=== PATIENT | female | born 1935 | race Caucasian/White ===

== ENCOUNTER 2019-09-14 19:25 | Inpatient (IN) | payer OTHER, BC ==
[2019-09-14 19:35] VITALS: BMI 31.3
--- NOTE | 2019-09-14 19:38 | PDOC ---
History of Present Illness - General Chief Complaint: Weakness Stated Complaint: RT. ARM NUMBNESS & WEAKNESS Time Seen by Provider: 09/14/19 19:38 History Source: Patient Exam Limitations: No Limitations - History of Present Illness Initial Comments: 09/14/19 19:39 84yF w PMHx HTN HLD hypothyroidism obesity, presenting w sudden onset R shoulder weakness/pain and BLE weakness. Left the house for the 1st time since April (5mo ago) to visit Dr Renay cross. Endorsed sudden onset BLE weakness upon re-entering her house. Denies LOC, head or shoulder trauma. Neighbours help drag pt up stairs on bed sheet to her bedroom w subsequent R shoulder weakness/pain. Last known well 230pm today. Per daughter, pt's speech and affect is baseline. Asad leg swelling is chronic. Pt denies headache, cough, chest/ABD pain, SOB, n/v, urinary/bowel mvmt changes. tPA Exclusion Checklist 0-3hr - Time Elapsed Date last known well: 09/14/19 Time last known well: 14:30 Elaspsed time: Day(s) and 10 Hour(s) and 52 Minutes - Thrombolytic Therapy Candidate Is the patient eligible for Thrombolytic Therapy?: No - Ineligibility reason(s) Reasons No tPA given: Outside of window - delayed arrival NIH Stroke Scale - Last Known Well Date/Time & Onset Date Last Known Well: 09/14/19 Time Last Known Well: 14:30 - Initial Evaluation Level of consciousness: Alert Ask patient the month and their age: Answers both correctly Ask patient to open & close eyes; make fist and let go: Obeys both correctly Best gaze (horizontal eye movement): Normal Visual field testing: No visual field loss Facial paresis (Show teeth/raise eyebrows/close eyes tight): Normal symmetrical movement Motor Function: Left Arm: Drift Motor Function: Right Arm: Some effort against gravity Motor Function: Left Leg: Some effort against gravity Motor Function: Right Leg: Some effort against gravity Limb Ataxia: No ataxia Sensory(Use pinprick test arms,legs,trunk,face/side to side): Normal Best language (Describe picture, name items, read sentences): No Aphasia Dysarthria (read several words): Normal articulation Extinction and Inattention: No abnormality - Total Score NIH Stroke Scale Score: 7 Past History - Medical History Allergies/Adverse Reactions: Allergies Allergy/AdvReac Type Severity Reaction Status Date / Time No Known Drug Allergies Allergy Verified 09/14/19 19:35 Home Medications: Ambulatory Orders Atenolol [Tenormin -] 50 mg PO DAILY #0 tablet 05/10/11 Atorvastatin Ca [Lipitor] 10 mg PO DAILY 06/10/13 Docosahexanoic Acid/Epa [Fish Oil Concentrate Softgel] 1 each PO DAILY 06/10/13 Fenofibrate 160 mg PO DAILY 06/10/13 Levothyroxine [Synthroid -] 100 mcg PO DAILY 06/10/13 Losartan Potassium 50 mg PO DAILY 06/10/13 Multivitamin/Iron/Folic Acid [Centrum Complete Multivit Tab] 1 each PO DAILY 06/10/13 Potassium Chloride 20 meq PO DAILY 06/10/13 Aspirin [ASA -] 325 mg PO DAILY@0800 #0 tablet 06/27/13 Oxycodone HCl/Acetaminophen [Percocet 5-325 mg Tablet] 1 - 2 combo PO Q6H PRN #0 tablet 06/27/13 Sennosides/Docusate Sodium [Pericolace -] 2 each PO HS #0 tablet 06/27/13 Anemia: No Asthma: No Cancer: No Cardiac Disorders: Yes (CARDIAC STENT) CVA: No COPD: No CHF: No Dementia: No Diabetes: No GI Disorders: No Disorders: No HTN: Yes Hypercholesterolemia: Yes Liver Disease: No Seizures: No Thyroid Disease: Yes (HYPOTHYROIDISM) - Surgical History Abdominal Surgery: No Appendectomy: No Cardiac Surgery: No Cholecystectomy: No Lung Surgery: No Neurologic Surgery: No Orthopedic Surgery: No - Psycho-Social/Smoking History Smoking Status: No Smoking History: Never smoked Have you smoked in the past 12 months: No Number of Cigarettes Smoked Daily: 0 - Substance Abuse Hx (Audit-C & DAST Scrn) How often the patient has a drink containing alcohol: Never Score: In Men: 4 or > Positive; In Women: 3 or > Positive: 0 Screen Result (Pos requires Nsg. Audit-10AR): Negative In the last yr the pt used illegal drug/Rx for NonMed reason: No Score: Yes response is considered Positive: 0 Screen Result (Positive result requires Nsg. DAST-10): Negative Review of Systems - Review of Systems Constitutional: No: Chills, Fever HEENTM: No: Eye Pain, Ear Discharge Respiratory: No: Cough, Shortness of Breath Cardiac (ROS): No: Chest Pain, Lightheadedness ABD/GI: No: Constipated, Diarrhea, Nausea, Vomiting : No: Burning, Dysuria Musculoskeletal: No: Back Pain, Joint Pain Integumentary: No: Bruising, Pallor Neurological: No: Headache, Seizure Psychiatric: No: Anxiety, Depression Endocrine: No: Intolerance to Cold, Intolerance to Heat Hematologic/Lymphatic: No: Anemia, Blood Clots *Physical Exam - Vital Signs Last Vital Signs Temp Pulse Resp BP Pulse Ox 98.7 F 62 17 136/82 98 09/14/19 19:31 09/14/19 19:31 09/14/19 19:31 09/14/19 19:31 09/14/19 19:31 - Physical Exam General Appearance: Yes: Nourished, Appropriately Dressed, Obese. No: Mild Distress HEENT: positive: EOMI, RAVINDER, Normal Voice, Hearing Grossly Normal. negative: Scleral Icterus (R), Scleral Icterus (L) Respiratory/Chest: positive: Lungs Clear, Normal Breath Sounds, Other (R posterior scapular bruising, palpable R lateral deformity). negative: Chest Tender, Respiratory Distress, Crackles, Rales, Rhonchi, Stridor, Wheezing Cardiovascular: positive: Regular Rhythm, Regular Rate, S1, S2. negative: Murmur Vascular Pulses: Dorsalis-Pedis (R): 1+, Doralis-Pedis (L): 1+ Comments:: 09/14/19 20:01 2+ radial asad Gastrointestinal/Abdominal: positive: Normal Bowel Sounds, Flat, Soft. negative: Tender, Organomegaly Musculoskeletal: negative: CVA Tenderness (R), CVA Tenderness (L) Extremity: positive: Pedal Edema (2+ pitting asad to knees), Other (R arm : shoulder tenderness, no abrasion, intact thumbs up/finger-5th digit/lumbrical strength, intact sensation to touch, abrasion L knee) Integumentary: positive: Normal Color, Warm Neurologic: positive: blade worker II-XII NML intact, Fully Oriented, Alert, Normal Mood/Affect, Normal Response. negative: Motor Strength 5/5 (4/5 L arm, 3/5 R arm, 3/5 BLE hip flexion, 5/5 dorsi/plantarflexion), Facial Droop, Numbness (all extremities), Sensory Deficit, Confused, Disoriented Procedures - Joint Reduction Right Joint Reduction Site: right: Anterior Dislocation Conscious Sedation: No Anesthetic: 1% Lidocaine Amount (mL): 10 Procedure: Other (external rotation) Post-Procedure NV Exam: normal Post Joint Reduction Film: joint not reduced ED Treatment Course - LABORATORY CBC & Chemistry Diagram: 09/14/19 20:20 09/14/19 20:20 Medical Decision Making - Medical Decision Making 09/14/19 19:57 EKG - sinus tachycardia w 1st deg block, LAD, HR 115, OH 212, QTc 445, no ST changes Head CT - mod atrophy, no acute bleed/lesion/infarct Chest, R arm XR - R medial shoulder dislocation, small glenoid avulsion fx, asad pulm congestion, no infiltrates/consolidation WBC 12 w L shift --- 84yF w PMHx HTN HLD hypothyroidism obesity presenting w sudden onset R shoulder weakness/pain and BLE weakness this afternoon, last known well 230pm today 1. Extremity weakness likely 2/2 deconditioning, new onset CHF exacerbation (leg swelling, BNP 630). Elevated trop 0.06 likely 2/2 demand. 2. close R medial arm dislocation. Neurovascular intact distal. Posterior bruising suggest RTC tear Low concern for CVA (only focal deficit R arm more weak than L, NIHSS 7 - extremity weakness, tPA not given d/t pt arrival over 3hrs from last well known, CT neg) vs ACS (no ST changes, no chest pain/SOB) vs PNA (no consolidation) vs UTI (no dysuria) vs hypothyroid (TSH <5) Given tylenol, 6 morphine, 20 lido in R shoulder joint Consented to reduction. Unable to permanently reduce R shoulder w external rotation, multiple times shoulder pops in/out of joint. Neurovascular intact distal. Placed in sling Consulted Dr Tennille rouse after multiple reduction attempts - advised place in sling, will evaluate inpatient Admitted tele hospitalist for pre-syncope, BLE weakness, R shoulder dislocation, RTC tear, CHF exacerbation - pending 2nd trop, UA Discharge - Discharge Information Problems reviewed: Yes Clinical Impression/Diagnosis: Pre-syncope, Leg weakness, bilateral Shoulder dislocation Qualifiers: Encounter type: initial encounter Laterality: right Qualified Code(s): S43.004A - Unspecified dislocation of right shoulder joint, initial encounter CHF exacerbation Qualifiers: Heart failure type: unspecified Qualified Code(s): I50.9 - Heart failure, unspecified Rotator cuff tear Qualifiers: Rotator cuff tear extent: unspecified tear extent Rotator cuff tear trauma status: traumatic Encounter type: initial encounter Laterality: right Qualified Code(s): S46.011A - Strain of muscle(s) and tendon(s) of the rotator cuff of right shoulder, initial encounter Condition: Stable - Follow up/Referral Referrals: Clark Cheema MD [Primary Care Provider] - - Patient Discharge Instructions - Post Discharge Activity
--- NOTE | 2019-09-14 19:53 | PDOC ---
Documentation entered by Ray Brand SCRIBE, acting as scribe for Mary Anne Tejeda MD. Mary Anne Tejeda MD: This documentation has been prepared by the scribe, Ray Quintana SCRIBE, under my direction and personally reviewed by me in its entirety. I confirm that the documentation accurately reflects all work, treatment, procedures, and medical decision making performed by me. Attending Attestation - Resident Resident Name: Mlyes Pereyra - ED Attending Attestation I have performed the following: I have examined & evaluated the patient, The case was reviewed & discussed with the resident, I agree w/resident's findings & plan, Exceptions are as noted - HPI HPI: 09/14/19 20:03 The patient is an 84 year old female with a significant PMH of hyperthyroidism, HTN, HLD, who presents to the ED, BIBA, with right sided shoulder and right upper extremity pain. The patient endorses an inability to raise her right arm s/p being pulled into her home by neighbors at 2:30 this afternoon. The patient reports she has not been outside of her home since April until today when she was going to a dermatology appointment. The patient reports she had no difficulty ambulating or walking downstairs prior to appointment with her walker. Upon return from appointment, patient endorses being unable to lift her legs high enough to climb the stairs into her home. The patient reports this was when her neighbors laid her down and pulled her up the stairs into her home. Per daughter (nurse at [facility]), patient is at baseline mental status. The patient denies fall or neck pain. The patient denies chest pain and shortness of breath. Denies fever, chills and/or any GI symptoms. Denies any symptoms. Denies any other symptoms. Allergies: NKDA Social Hx:None reported PCP: Dr. Rafa Cheema (appointment 10/11) - Physicial Exam PE: 09/14/19 20:03 GENERAL: Well-appearing, well-nourished. No apparent distress. HEENT: Normocephalic, atraumatic. PERRL, EOM intact. CARDIOVASCULAR: [id number] PULMONARY: cta b/l ABDOMEN: Protuberant, Soft, non-distended, non-tender. EXTREMITIES: LE chronic 3+ pitting edema, deformity of right shoulder, good ulnar and radial pulses SKIN: there is a large area of ecchymosis to right scapula Warm, dry. No rash NEUROLOGICAL: alert and conversant 09/14/19 21:05 09/14/19 23:23 09/15/19 01:11 - Medical Decision Making 09/15/19 01:45 pt sustained a right shoulder dislocation around 2:30 pm after being pulled on a blanket to bring her into her house, She was too weak to walk at that time ct scan head no acute intracranial pathology , there is moderate atrophy labs reviewed: no anemia, both troponins 0.06 , bnp>600 09/15/19 01:51 pt has dislocated rt shoulder/ multiple attempts were made at shoulder reduction but were unsuccessful , the arm would reduce then come out again, sensation is intact,good pulses Discharge - Discharge Information Problems reviewed: Yes Clinical Impression/Diagnosis: Pre-syncope, Leg weakness, bilateral Shoulder dislocation Qualifiers: Encounter type: initial encounter Laterality: right Qualified Code(s): S43.004A - Unspecified dislocation of right shoulder joint, initial encounter CHF exacerbation Qualifiers: Heart failure type: unspecified Qualified Code(s): I50.9 - Heart failure, unspecified Rotator cuff tear Qualifiers: Rotator cuff tear extent: unspecified tear extent Rotator cuff tear trauma status: traumatic Encounter type: initial encounter Laterality: right Qualified Code(s): S46.011A - Strain of muscle(s) and tendon(s) of the rotator cuff of right shoulder, initial encounter Condition: Stable - Follow up/Referral - Patient Discharge Instructions - Post Discharge Activity
[2019-09-14] MEDS ORDERED: ACETAMINOPHEN 500 MG TABLET (FP) PO ONE (20:08)
[2019-09-14] MEDS ORDERED: ACETAMINOPHEN 325 MG TABLET (FP) ONE (20:20)
[2019-09-14 20:35] LABS: BASO % 0.4 % (0-2.0); EOS % 0.3 % (0-4.5); HEMATOCRIT 39.7 % (32.4-45.2); HEMOGLOBIN 12.8 GM/dL (10.7-15.3); LYMPH % 4.8 % (8-40); MCH 29.1 pg (25.7-33.7); MCHC 32.3 g/dl (32.0-36.0); MEAN PLT VOLUME 7.7 fl (7.5-11.1); MONO % 10.9 % (3.8-10.2); NEUT % 83.6 % (42.8-82.8); PLATELET COUNT 256 K/MM3 (134-434); RBC 4.41 M/mm3 (3.60-5.2); RDW 15.2 % (11.6-15.6); WHITE BLOOD COUNT 12.6 K/mm3 (4.0-10.0)
[2019-09-14 20:45] LABS: INR 1.01 (0.83-1.09); PROTHROMBIN TIME (PATIENT) 11.9 SEC (9.7-13.0)
[2019-09-14 21:19] LABS: ALBUMIN 3.3 g/dl (3.4-5.0); BILIRUBIN,TOTAL 0.7 mg/dL (0.2-1); BLOOD UREA NITROGEN 24.6 mg/dL (7-18); CALCIUM 8.9 mg/dL (8.5-10.1); CREATININE 0.9 mg/dL (0.55-1.3); POTASSIUM 3.8 mmol/L (3.5-5.1); TOT PROT 6.2 g/dl (6.4-8.2)
[2019-09-14] MEDS ORDERED: morphine CARPU-JECT 4 MG/1 ML DISP.SYRIN IVPUSH ONE ×2 (21:49→23:10)
[2019-09-14] MEDS ORDERED: LIDOCAINE HCL 1%, 10 MG/ML (50 mL VIAL) INF ONE (21:52)
[2019-09-14] MEDS ORDERED: LIDOCAINE HCL 1%, 10 MG/ML (20ML VIAL) ONE ×2 (22:02→23:56)
[2019-09-14] MEDS ORDERED: morphine SULFATE 4 MG/ML VIAL ONE (22:04)
[2019-09-14] MEDS ORDERED: MORPHINE SULFATE 2 MG/ML VIAL ONE (22:56)
--- NOTE | 2019-09-15 03:08 | PN ---
Teaching Attending Note Name of Resident: Mavis Gupta ATTENDING PHYSICIAN STATEMENT I saw and evaluated the patient. I reviewed the resident's note and discussed the case with the resident. I agree with the resident's findings and plan as documented. SUBJECTIVE: This is an 84 year old woman with a history of HTN, hyperlipidemia, hypothyroidism who comes to the ED complaining of right shoulder pain. The patient reports that upon returning home from an appointment, she had weakness in both legs. She had to be assisted up her stairs and into her bed by several people using a bed sheet to drag her. Once in bed, she developed severe right shoulder pain. OBJECTIVE: Vital Signs Period Temp Pulse Resp BP Sys/Mazariegos Pulse Ox Last 24 Hr 97.4 F-98.8 F 62-106 17-22 114-136/62-92 97-100 HEART: S1S2, tachycardic LUNGS: Clear ABDOMEN: Soft, non-tender, non-distended, normal BS EXTREMITIES: 2+ edema Laboratory Tests 09/14/19 09/14/19 09/14/19 20:20 20:20 20:20 WBC 12.6 H RBC 4.41 Hgb 12.8 Hct 39.7 D MCV 90.0 MCH 29.1 MCHC 32.3 RDW 15.2 Plt Count 256 MPV 7.7 Absolute Neuts (auto) 10.5 H Neutrophils % 83.6 H D Lymphocytes % 4.8 L D Monocytes % 10.9 H Eosinophils % 0.3 D Basophils % 0.4 Nucleated RBC % 0 PT with INR 11.90 INR 1.01 Sodium 146 H Potassium 3.8 Chloride 110 H Carbon Dioxide 27 Anion Gap 8 BUN 24.6 H Creatinine 0.9 Est GFR (CKD-EPI)AfAm 67.10 Est GFR (CKD-EPI)NonAf 57.90 Random Glucose 150 H Calcium 8.9 Total Bilirubin 0.7 AST 28 ALT 24 Alkaline Phosphatase 57 Creatine Kinase 533 H Creatine Kinase Index 1.9 CK-MB (CK-2) 10.2 H Troponin I 0.06 H B-Natriuretic Peptide Total Protein 6.2 L Albumin 3.3 L TSH 4.42 H Free T4 0.88 09/14/19 09/15/19 20:20 00:52 WBC RBC Hgb Hct MCV MCH MCHC RDW Plt Count MPV Absolute Neuts (auto) Neutrophils % Lymphocytes % Monocytes % Eosinophils % Basophils % Nucleated RBC % PT with INR INR Sodium Potassium Chloride Carbon Dioxide Anion Gap BUN Creatinine Est GFR (CKD-EPI)AfAm Est GFR (CKD-EPI)NonAf Random Glucose Calcium Total Bilirubin AST ALT Alkaline Phosphatase Creatine Kinase Creatine Kinase Index CK-MB (CK-2) Troponin I 0.06 H B-Natriuretic Peptide 634.5 H Total Protein Albumin TSH Free T4 Home Medications Medication Instructions Recorded Atenolol [Tenormin -] 50 mg PO DAILY #0 tablet 05/10/11 Atorvastatin Ca [Lipitor] 10 mg PO DAILY 06/10/13 Docosahexanoic Acid/Epa [Fish Oil 1 each PO DAILY 06/10/13 Concentrate Softgel] Fenofibrate 160 mg PO DAILY 06/10/13 Levothyroxine [Synthroid -] 100 mcg PO DAILY 06/10/13 Losartan Potassium 50 mg PO DAILY 06/10/13 Multivitamin/Iron/Folic Acid 1 each PO DAILY 06/10/13 [Centrum Complete Multivit Tab] Potassium Chloride 20 meq PO DAILY 06/10/13 Aspirin [ASA -] 325 mg PO DAILY@0800 #0 tablet 06/27/13 Oxycodone HCl/Acetaminophen 1 - 2 combo PO Q6H PRN #0 tablet 06/27/13 [Percocet 5-325 mg Tablet] Sennosides/Docusate Sodium 2 each PO HS #0 tablet 06/27/13 [Pericolace -] ASSESSMENT AND PLAN: This is an 84 year old woman with a history of HTN, hyperlipidemia, hypothyroidism who presented to the ED with right shoulder pain after being assisted up stairs because of leg weakness. 1. Anterior dislocation of right shoulder - RUE sling - Pain control - Ortho consult 2. Elevated CK - Possible rhabdomyolysis, myositis - Hold Lipitor - Check ESR, C-RP - Will hold off on giving IV fluid and encourage oral fluid intake - Repeat CK in AM 3. Leg edema, cardiomegaly and increased interstitial markings on AP CXR - Leg edema is chronic - No evidence of acute heart failure - Echocardiogram - Venous dopplers - Chest CT 4. Hypothyroidism - Increase Synthroid as TSH is high and FT4 is low normal
--- NOTE | 2019-09-15 03:18 | HP ---
CHIEF COMPLAINT: My shoulder hurts PCP: Dr. Ortiz HISTORY OF PRESENT ILLNESS: Juliann Protillo is a 84 Y F with a PMH of HLD, HTN, Hypothyroidism and Obesity presented to the ED with 1 day of Right shoulder Pain. She reports that after 5 months of not leaving her home, today she went to a lead process engineer office for an evaluation of a suspicious lesion found on her right shoulder, by her daughter. Upon returning home, she was not able to lift her legs to climb the stairs inside her house, even with assistance from her daughter and neighbor, She felt that her legs were weak and had to sit down on the floor. She was not able to climb the stairs so she was dragged into her upstairs bedroom on a bedsheet cover by her daughter and the next door neighbor. After a while she was laying in her bed, when She began to experience a sudden onset of sever, sharp pain and weakness of right shoulder, which prompt her to visit the ED. Patient denies any Fall, LOC, Head trauma, SOB, cough, Fever, chills, Chest pain, nausea/vomiting, diarrhea, headache, changes in vision, prior to the and/or during the episode. Patient reports that she had a b/l Lower extremity edema for few years and her b/l Lower extremity weakness began about 6 months ago. She reports that she was also taking (Lasix) for Lower extremity pain and decided to stop taking it after the pain resolved, 4 months ago. She reports normally she is able to walk with her walker for few blocks and is able to climb the stairs with assistance from her daughter. She also admits that she uses 3 pillows to sleep but she is able to sleep with one pillow w/o having any SOB. She currently lives with her daughter and son, who helps her with her daily chores. ED course: Patient had a mild improvements in her pain. In ED she was given Morphine sulfate 4mg, Fentanyl 100 mcg, Tylenol 975mg, and Lidocaine 1% 20ml. EKG - sinus tachycardia w 1st deg block, LAD, HR 115, CO 212, QTc 445, no ST changes. Head CT revealed mod. atrophy w/o any acute bleed/lesion/infarct. CXR revealed cardiomegaly and possible pulmonary Venous congestion w/o infiltrates/consolidation. Humeral XR and Shoulder XR revealed anterior dislocation of the R. humeral head with evidence of small glenoid avulsion fracture. Dr Null (Ortho) was consulted and recommended sling placement and will evaluate inpatient in the AM. Patient is admitted to Tele for further observation and management of her acute pain. ER course was notable for: (1) WBC 12.6 (2) Crea Kinase 533H, CK-MB 10.2H, Trop 1x 0.06H, BNP 634H (3) Humeral XR and Shoulder XR revealed anterior dislocation of the R. humeral head with evidence of small glenoid avulsion fracture Recent Travel: denies PAST MEDICAL HISTORY: As above in HPI PAST SURGICAL HISTORY: Left total knee replacement, Right partial knee replacement Social History: Smoking: denies Alcohol: denies Drugs: denies Allergies No Known Drug Allergies Allergy (Verified 09/14/19 19:35) HOME MEDICATIONS: Home Medications Medication Instructions Recorded Atenolol [Tenormin -] 50 mg PO DAILY #0 tablet 05/10/11 Atorvastatin Ca [Lipitor] 10 mg PO DAILY 06/10/13 Docosahexanoic Acid/Epa [Fish Oil 1 each PO DAILY 06/10/13 Concentrate Softgel] Fenofibrate 160 mg PO DAILY 06/10/13 Levothyroxine [Synthroid -] 100 mcg PO DAILY 06/10/13 Losartan Potassium 50 mg PO DAILY 06/10/13 Multivitamin/Iron/Folic Acid 1 each PO DAILY 06/10/13 [Centrum Complete Multivit Tab] Potassium Chloride 20 meq PO DAILY 06/10/13 Aspirin [ASA -] 325 mg PO DAILY@0800 #0 tablet 06/27/13 Oxycodone HCl/Acetaminophen 1 - 2 combo PO Q6H PRN #0 tablet 06/27/13 [Percocet 5-325 mg Tablet] Sennosides/Docusate Sodium 2 each PO HS #0 tablet 06/27/13 [Pericolace -] REVIEW OF SYSTEMS CONSTITUTIONAL: Absent: fever, chills, diaphoresis, generalized weakness, malaise, loss of appetite, weight change HEENT: Absent: rhinorrhea, nasal congestion, throat pain, difficulty swallowing, visual changes CARDIOVASCULAR: Present: peripheral edema Absent: chest pain, syncope, palpitations, irregular heart rate, lightheadedness RESPIRATORY: Absent: cough, shortness of breath, dyspnea with exertion, orthopnea, wheezing GASTROINTESTINAL: Absent: abdominal pain, abdominal distension, nausea, vomiting, diarrhea, constipation GENITOURINARY: Absent: dysuria, frequency, urgency, hesitancy, hematuria, flank pain MUSCULOSKELETAL: Absent: myalgia, arthralgia, joint swelling, back pain, neck pain SKIN: Absent: rash, itching NEUROLOGIC: Present: b/l lower extremity weakness Absent: headache, focal weakness or paresthesias, dizziness, unsteady gait, seizure, mental status changes, bladder or bowel incontinence PHYSICAL EXAMINATION Vital Signs - 24 hr 09/14/19 09/14/19 09/14/19 19:31 20:46 21:50 Temperature 98.7 F 98.8 F Pulse Rate 62 106 H Pulse Rate [ 106 H Apical] Respiratory 17 20 Rate Blood Pressure 136/82 Blood Pressure 114/92 [Left Arm] O2 Sat by Pulse 98 97 100 Oximetry (%) 09/14/19 09/15/19 23:45 02:00 Temperature 97.4 F L Pulse Rate Pulse Rate [ 105 H 101 H Apical] Respiratory 22 H 19 Rate Blood Pressure Blood Pressure 136/62 121/71 [Left Arm] O2 Sat by Pulse 98 97 Oximetry (%) GENERAL: Awake, alert, and fully oriented, in no acute distress. HEAD: Normal with no signs of trauma. EYES: Pupils equal, round and reactive to light, extraocular movements intact, sclera anicteric, conjunctiva clear. EARS, NOSE, THROAT: Ears normal, nares patent, oropharynx clear without exudates. Moist mucous membranes. NECK: Normal range of motion, supple without lymphadenopathy, JVD, or masses. LUNGS: Breath sounds equal, clear to auscultation bilaterally. No wheezes, and no crackles. No accessory muscle use. HEART: Regular rate and rhythm, normal S1 and S2 without murmur, rub or gallop. ABDOMEN: Soft, nontender, not distended, normoactive bowel sounds, no guarding, no rebound, no masses. MUSCULOSKELETAL: Not able to move her right arm due to pain, Limited ROM of right arm/shoulder. Normal range of motion at all other joints. No bony deformities or tenderness. No CVA tenderness. UPPER EXTREMITIES: 2+ pulses, warm, well-perfused. No cyanosis. No clubbing. No peripheral edema. LOWER EXTREMITIES: 1+ pulses, warm, well-perfused. No calf tenderness. +2 peripheral pitting edema. NEUROLOGICAL: Normal speech. Motor function intact in all extremities PSYCHIATRIC: Cooperative. Good eye contact. Appropriate mood and affect. SKIN: Warm, dry, normal turgor, no rashes or lesions noted, normal capillary refill. R posterior scapular bruising Laboratory Results - last 24 hr 09/14/19 09/14/19 09/14/19 20:20 20:20 20:20 WBC 12.6 H RBC 4.41 Hgb 12.8 Hct 39.7 D MCV 90.0 MCH 29.1 MCHC 32.3 RDW 15.2 Plt Count 256 MPV 7.7 Absolute Neuts (auto) 10.5 H Neutrophils % 83.6 H D Lymphocytes % 4.8 L D Monocytes % 10.9 H Eosinophils % 0.3 D Basophils % 0.4 Nucleated RBC % 0 PT with INR 11.90 INR 1.01 Sodium 146 H Potassium 3.8 Chloride 110 H Carbon Dioxide 27 Anion Gap 8 BUN 24.6 H Creatinine 0.9 Est GFR (CKD-EPI)AfAm 67.10 Est GFR (CKD-EPI)NonAf 57.90 Random Glucose 150 H Calcium 8.9 Total Bilirubin 0.7 AST 28 ALT 24 Alkaline Phosphatase 57 Creatine Kinase 533 H Creatine Kinase Index 1.9 CK-MB (CK-2) 10.2 H Troponin I 0.06 H B-Natriuretic Peptide Total Protein 6.2 L Albumin 3.3 L TSH 4.42 H Free T4 0.88 09/14/19 09/15/19 20:20 00:52 WBC RBC Hgb Hct MCV MCH MCHC RDW Plt Count MPV Absolute Neuts (auto) Neutrophils % Lymphocytes % Monocytes % Eosinophils % Basophils % Nucleated RBC % PT with INR INR Sodium Potassium Chloride Carbon Dioxide Anion Gap BUN Creatinine Est GFR (CKD-EPI)AfAm Est GFR (CKD-EPI)NonAf Random Glucose Calcium Total Bilirubin AST ALT Alkaline Phosphatase Creatine Kinase Creatine Kinase Index CK-MB (CK-2) Troponin I 0.06 H B-Natriuretic Peptide 634.5 H Total Protein Albumin TSH Free T4 ASSESSMENT/PLAN: 84 Y F with a PMH of HLD, HTN, Hypothyroidism and Obesity presented to the ED with 1 day of Right shoulder Pain and b/l Lower extremity weakness/edema. she was not able to lift her legs to climb the stairs in her home, even with assistance from her daughter and neighbor, requiring her to be dragged into her upstairs bedroom on a bedsheet cover. [facility] management of her acute pain and for investigation of her b/l LE weakness/edema. #Right shoulder pain - 2/2 trauma: R. shoulder dislocation + possible R. shoulder Rotator cuff injury. - Presented with 1day of severe pain - Humeral XR and Shoulder XR revealed anterior dislocation of the R. humeral head with evidence of small glenoid avulsion fracture - Ortho (Dr Null) was consulted-recommended Sling placement until further evaluation in the morning. - Pain management: Continue Tylenol 650mg PO, if pain is not well controlled, will order Morphine 4mg Q4H #B/L Lower extremity weakness likely deconditioning # B/L lower extremity Edema 2/2 possible CHF vs Venous insufficiency - Patient reports chronic presentation: few years of edema and 6 mnths of Weakness - CXR revealed cardiomegaly and possible pulmonary Venous congestion w/o infiltrates/consolidation. - Patient denies any SOB and the Clinical exam was inconsistent (clear lung sounds) with acute CHF presentation, However the patient had an elevated BNP(634) with Lower extremity edema, which raises the suspicion for chronic CHF. - Will order Echocardiography to evaluate her heart function and to r/o a possible, recent, undiagnosed OK. - Will F/U with Morning EKG to evaluate for any acute changes. - F/U with Venous dopplers - F/U with Chest CT - Will hold IVF and encourage patient for PO intake. - Ordered PT #Elevated Creatinine Kinase - Most likely 2/2 to skeletal muscle trauma Vs Rhabdomyolysis (myositis) - Will hold IVF and encourage patient for PO intake, due to concern for acute CHF. - Will Hold Statin medications (lipitor) - F/U with ESR, C-RP - F/u CK in AM - Will f/u with morning UA to evaluate for kidney functions #Elevated WBC - Reactive vs dehydration, infection is unlikely - No obvious etiology of infection (no sores, v/s stable) - CXR revealed no consolidation/infiltrates - Will f/u with UA and Urine Culture - continue to monitor CBC #HTN - BP stable at this time - Will need to Med Rec her home meds in AM - Continue Home meds #HLD - Will hold Lipitor for now, Possible rhabdomyolysis - continue to trend Crea. Kinase #Hypothyroidism - Will increase Synthyroid as TSH is elevated (4.42) with low normal FT4(0.88) - will continue to monitor #FEN - No Fluid indicated this time, due to possible acute CHF - Continue to monitor Electrolytes, Crea Kinase, Trop, BNP, WBC - Low sodium Diet #DVT PPX: - Levenox 40mg #DISPO: - will continue to monitor patient in Tele, Pending Ortho Recs. Visit type - Emergency Visit Emergency Visit: Yes ED Registration Date: 09/14/19 Care time: The patient presented to the Emergency Department on the above date and was hospitalized for further evaluation of their emergent condition. - New Patient This patient is new to me today: Yes Date on this admission: 09/15/19 - Critical Care Critical Care patient: No ATTENDING PHYSICIAN STATEMENT I saw and evaluated the patient. I reviewed the resident's note and discussed the case with the resident. I agree with the resident's findings and plan as documented. SUBJECTIVE: OBJECTIVE: ASSESSMENT AND PLAN:
[2019-09-15 05:46] LABS: BASO % 0.5 % (0-2.0); EOS % 0.1 % (0-4.5); HEMATOCRIT 37.5 % (32.4-45.2); HEMOGLOBIN 12.2 GM/dL (10.7-15.3); LYMPH % 6.6 % (8-40); MCH 29.3 pg (25.7-33.7); MCHC 32.6 g/dl (32.0-36.0); MEAN CELL VOLUME 89.9 fl (80-96); MEAN PLT VOLUME 7.7 fl (7.5-11.1); MONO % 12.1 % (3.8-10.2); NEUT % 80.7 % (42.8-82.8); PLATELET COUNT 230 K/MM3 (134-434); RBC 4.17 M/mm3 (3.60-5.2); RDW 15.1 % (11.6-15.6); WHITE BLOOD COUNT 10.4 K/mm3 (4.0-10.0)
[2019-09-15 05:50] LABS: EPI CELLS 6 /uL (0-25.1); HYALINE CASTS 5 /uL (0-3.1); URINE APPEARANCE CLEAR; URINE BACTERIA 5 /uL (0-1359); URINE BILIRUBIN NEGATIVE (NEGATIVE); URINE COLOR DK YELLOW; URINE GLUCOSE (UA) NEGATIVE (NEGATIVE); URINE KETONE NEGATIVE (NEGATIVE); URINE LEUK ESTERASE NEGATIVE (NEGATIVE); URINE NITRITE NEGATIVE (NEGATIVE); URINE PROTEIN 1+ (NEGATIVE); URINE RBC 15 /uL (0-23.9); URINE UROBILINOGEN 0.2 mg/dL (0.2-1.0); URINE WBC 3 /uL (0-25.8)
[2019-09-15 06:24] LABS: ALBUMIN 3.1 g/dl (3.4-5.0); BILIRUBIN,TOTAL 1.1 mg/dL (0.2-1); BLOOD UREA NITROGEN 28.4 mg/dL (7-18); CALCIUM 8.4 mg/dL (8.5-10.1); CREATININE 1.1 mg/dL (0.55-1.3); MAGNESIUM 1.7 mg/dL (1.8-2.4); PHOSPHOROUS 4.7 mg/dL (2.5-4.9); POTASSIUM 3.7 mmol/L (3.5-5.1); TOT PROT 6.1 g/dl (6.4-8.2)
[2019-09-15] MEDS ORDERED: LEVOTHYROXINE NA 25 MCG TABLET (FP) ONE (07:16)
[2019-09-15] MEDS: LEVOTHYROXINE NA 100 MCG TABLET (FP) PO SCH (07:22)
[2019-09-15] MEDS ORDERED: ACETAMINOPHEN 325 MG TABLET (FP) ONE ×2 (07:29→16:13)
[2019-09-15] MEDS: ACETAMINOPHEN 325 MG TABLET (FP) PO PRN ×2 (07:30→16:16)
[2019-09-15] MEDS ORDERED: MAGNESIUM SULF 50% (8.12 MEQ/2 ML-1 GM VIAL) IVPB ONE (07:42)
[2019-09-15] MEDS ORDERED: MAGNESIUM SULF 50% (8.12 MEQ/2 ML-1 GM VIAL) ONE (08:26)
[2019-09-15] MEDS ORDERED: MAGNESIUM OXIDE 400 MG TABLET (FP) PO ONE (08:37)
[2019-09-15] MEDS ORDERED: LOSARTAN POTASSIUM 50 MG TABLET (FP) ONE (09:26)
[2019-09-15] MEDS ORDERED: ATENOLOL 25 MG TABLET (FP) ONE (09:26)
[2019-09-15] MEDS ORDERED: ENOXAPARIN NA (PORCINE) 40 MG/0.4 ML DISP.SYRIN SQ ONE (09:26)
[2019-09-15] MEDS ORDERED: POTASSIUM CHLORIDE TABS 20 MEQ TABLET.ER (FP) PO ONE (09:26)
[2019-09-15] MEDS: POTASSIUM CHLORIDE TABS 20 MEQ TABLET.ER (FP) PO SCH (09:37)
[2019-09-15] MEDS: ENOXAPARIN NA (PORCINE) 40 MG/0.4 ML DISP.SYRIN SQ SCH (09:37)
[2019-09-15] MEDS: LOSARTAN POTASSIUM 50 MG TABLET (FP) PO SCH (09:37)
[2019-09-15] MEDS: ATENOLOL 50 MG TABLET (FP) PO SCH (09:38)
--- NOTE | 2019-09-15 10:01 | EKG ---
Test Reason : Blood Pressure : / mmHG Vent. Rate : 115 BPM Atrial Rate : 115 BPM P-R Int : 212 ms QRS Dur : 074 ms QT Int : 322 ms P-R-T Axes : 045 -46 001 degrees QTc Int : 445 ms POOR DATA QUALITY, INTERPRETATION MAY BE ADVERSELY AFFECTED SINUS TACHYCARDIA WITH 1ST DEGREE A-V BLOCK LEFT ATRIAL ENLARGEMENT LEFT AXIS DEVIATION LEFT ANTERIOR FASCICULAR BLOCK ANTERIOR INFARCT , AGE UNDETERMINED ABNORMAL ECG Confirmed by MD ROBERT, GIO ([id number]) on 09/15/2019 10:00:29 AM Referred By: Confirmed By:GIO JONES MD
--- NOTE | 2019-09-15 11:12 | EKG ---
Test Reason : Blood Pressure : / mmHG Vent. Rate : 074 BPM Atrial Rate : 074 BPM P-R Int : 174 ms QRS Dur : 094 ms QT Int : 456 ms P-R-T Axes : -01 -06 060 degrees QTc Int : 506 ms NORMAL SINUS RHYTHM PROLONGED QT ABNORMAL ECG Confirmed by MD ROBERT, GIO ([id number]) on 09/15/2019 11:12:26 AM Referred By: Confirmed By:GIO JONES MD
--- NOTE | 2019-09-15 13:31 | PN ---
Teaching Attending Note Name of Resident: Jann Mey ATTENDING PHYSICIAN STATEMENT I saw and evaluated the patient. I reviewed the resident's note and discussed the case with the resident. I agree with the resident's findings and plan as documented. SUBJECTIVE: Feeling well. Denies shoulder or back pain. OBJECTIVE: Afebrile, Hemodynamically Stable. AAO x 2 Last Vital Signs Temp Pulse Resp BP Pulse Ox 98.2 F 97 H 20 146/82 93 L 09/15/19 06:11 09/15/19 07:15 09/15/19 07:15 09/15/19 07:15 09/15/19 07:15 HEENT - Atraumatic, Normocephalic Heart - S1, S2, RRR Lungs - clear to auscultation Abdomen - High BMI. Soft, non-tender. Bowel Sounds normal. Extremities - Edema++. Neuro - AAO x 2. Mildly decreased Power LEs. No focal deficits. Laboratory Results - last 24 hr 09/14/19 09/14/19 09/14/19 20:20 20:20 20:20 WBC 12.6 H RBC 4.41 Hgb 12.8 Hct 39.7 D MCV 90.0 MCH 29.1 MCHC 32.3 RDW 15.2 Plt Count 256 MPV 7.7 Absolute Neuts (auto) 10.5 H Neutrophils % 83.6 H D Lymphocytes % 4.8 L D Monocytes % 10.9 H Eosinophils % 0.3 D Basophils % 0.4 Nucleated RBC % 0 ESR PT with INR 11.90 INR 1.01 Sodium 146 H Potassium 3.8 Chloride 110 H Carbon Dioxide 27 Anion Gap 8 BUN 24.6 H Creatinine 0.9 Est GFR (CKD-EPI)AfAm 67.10 Est GFR (CKD-EPI)NonAf 57.90 Random Glucose 150 H Calcium 8.9 Phosphorus Magnesium Total Bilirubin 0.7 AST 28 ALT 24 Alkaline Phosphatase 57 Creatine Kinase 533 H Creatine Kinase Index 1.9 CK-MB (CK-2) 10.2 H Troponin I 0.06 H C-Reactive Protein B-Natriuretic Peptide Total Protein 6.2 L Albumin 3.3 L TSH 4.42 H Free T4 0.88 Urine Color Urine Appearance Urine pH Ur Specific [place] Urine Protein Urine Glucose (UA) Urine Ketones Urine Blood Urine Nitrite Urine Bilirubin Urine Urobilinogen Ur Leukocyte Esterase Urine WBC (Auto) Urine RBC (Auto) Urine Casts (Auto) U Epithel Cells (Auto) Urine Bacteria (Auto) 09/14/19 09/15/19 09/15/19 20:20 00:52 05:30 WBC 10.4 H RBC 4.17 Hgb 12.2 Hct 37.5 MCV 89.9 MCH 29.3 MCHC 32.6 RDW 15.1 Plt Count 230 MPV 7.7 Absolute Neuts (auto) 8.4 H Neutrophils % 80.7 Lymphocytes % 6.6 L D Monocytes % 12.1 H Eosinophils % 0.1 Basophils % 0.5 Nucleated RBC % 0 ESR Cancelled PT with INR INR Sodium Potassium Chloride Carbon Dioxide Anion Gap BUN Creatinine Est GFR (CKD-EPI)AfAm Est GFR (CKD-EPI)NonAf Random Glucose Calcium Phosphorus Magnesium Total Bilirubin AST ALT Alkaline Phosphatase Creatine Kinase Creatine Kinase Index CK-MB (CK-2) Troponin I 0.06 H C-Reactive Protein B-Natriuretic Peptide 634.5 H Total Protein Albumin TSH Free T4 Urine Color Urine Appearance Urine pH Ur Specific [place] Urine Protein Urine Glucose (UA) Urine Ketones Urine Blood Urine Nitrite Urine Bilirubin Urine Urobilinogen Ur Leukocyte Esterase Urine WBC (Auto) Urine RBC (Auto) Urine Casts (Auto) U Epithel Cells (Auto) Urine Bacteria (Auto) 09/15/19 09/15/19 09/15/19 05:30 05:30 05:30 WBC RBC Hgb Hct MCV MCH MCHC RDW Plt Count MPV Absolute Neuts (auto) Neutrophils % Lymphocytes % Monocytes % Eosinophils % Basophils % Nucleated RBC % ESR 13 PT with INR INR Sodium 143 Potassium 3.7 Chloride 110 H Carbon Dioxide 26 Anion Gap 8 BUN 28.4 H Creatinine 1.1 Est GFR (CKD-EPI)AfAm 52.65 Est GFR (CKD-EPI)NonAf 45.42 Random Glucose 151 H Calcium 8.4 L Phosphorus 4.7 Magnesium 1.7 L Total Bilirubin 1.1 H AST 33 ALT 26 Alkaline Phosphatase 58 Creatine Kinase 650 H Creatine Kinase Index 1.5 CK-MB (CK-2) 10.2 H Troponin I 0.06 H C-Reactive Protein 2.8 H 6.2 H B-Natriuretic Peptide Total Protein 6.1 L Albumin 3.1 L TSH Free T4 Urine Color Urine Appearance Urine pH Ur Specific [place] Urine Protein Urine Glucose (UA) Urine Ketones Urine Blood Urine Nitrite Urine Bilirubin Urine Urobilinogen Ur Leukocyte Esterase Urine WBC (Auto) Urine RBC (Auto) Urine Casts (Auto) U Epithel Cells (Auto) Urine Bacteria (Auto) 09/15/19 05:31 WBC RBC Hgb Hct MCV MCH MCHC RDW Plt Count MPV Absolute Neuts (auto) Neutrophils % Lymphocytes % Monocytes % Eosinophils % Basophils % Nucleated RBC % ESR PT with INR INR Sodium Potassium Chloride Carbon Dioxide Anion Gap BUN Creatinine Est GFR (CKD-EPI)AfAm Est GFR (CKD-EPI)NonAf Random Glucose Calcium Phosphorus Magnesium Total Bilirubin AST ALT Alkaline Phosphatase Creatine Kinase Creatine Kinase Index CK-MB (CK-2) Troponin I C-Reactive Protein B-Natriuretic Peptide Total Protein Albumin TSH Free T4 Urine Color Dk yellow Urine Appearance Clear Urine pH 5.0 Ur Specific [place] 1.027 Urine Protein 1+ H Urine Glucose (UA) Negative Urine Ketones Negative Urine Blood Negative Urine Nitrite Negative Urine Bilirubin Negative Urine Urobilinogen 0.2 Ur Leukocyte Esterase Negative Urine WBC (Auto) 3 Urine RBC (Auto) 15 Urine Casts (Auto) 5 U Epithel Cells (Auto) 6 Urine Bacteria (Auto) 5 Current Medications Generic Name Dose Route Start Last Admin Trade Name Freq PRN Reason Stop Dose Admin Acetaminophen 650 mg 09/15/19 02:33 09/15/19 07:30 Tylenol - PO 650 mg Q4H PRN Administration PAIN LEVEL 6-10 Atenolol 50 mg 09/15/19 10:00 09/15/19 09:38 Tenormin - PO 50 mg DAILY SAAD Administration Enoxaparin Sodium 40 mg 09/15/19 10:00 09/15/19 09:37 Lovenox - SQ 40 mg DAILY SAAD Administration Levothyroxine Sodium 100 mcg 09/15/19 07:00 09/15/19 07:22 Synthroid - PO 100 mcg ACBK SAAD Administration Losartan Potassium 50 mg 09/15/19 10:00 09/15/19 09:37 Cozaar - PO 50 mg DAILY SAAD Administration Potassium Chloride 20 meq 09/15/19 10:00 09/15/19 09:37 K-Dur - PO 20 meq DAILY SAAD Administration Senna/Docusate Sodium 2 tablet 09/15/19 22:00 Pericolace - PO HS [facility] Home Medications Medication Instructions Recorded Atenolol [Tenormin -] 50 mg PO DAILY #0 tablet 05/10/11 Atorvastatin Ca [Lipitor] 10 mg PO DAILY 06/10/13 Docosahexanoic Acid/Epa [Fish Oil 1 each PO DAILY 06/10/13 Concentrate Softgel] Fenofibrate 160 mg PO DAILY 06/10/13 Levothyroxine [Synthroid -] 100 mcg PO DAILY 06/10/13 Losartan Potassium 50 mg PO DAILY 06/10/13 Multivitamin/Iron/Folic Acid 1 each PO DAILY 06/10/13 [Centrum Complete Multivit Tab] Potassium Chloride 20 meq PO DAILY 06/10/13 Aspirin [ASA -] 325 mg PO DAILY@0800 #0 tablet 06/27/13 Oxycodone HCl/Acetaminophen 1 - 2 combo PO Q6H PRN #0 tablet 06/27/13 [Percocet 5-325 mg Tablet] Sennosides/Docusate Sodium 2 each PO HS #0 tablet 06/27/13 [Pericolace -] ASSESSMENT AND PLAN: 84 year old female with history of HTN, HLD, Hypothyroidism, presents with LE weakness, R shoulder pain after being carried up stairs in a sheet due to poor mobility. 1. Right Anterior Shoulder Dislocation Ortho consult. Sling. 2. T12 Spinal fracture ?stable Radiology recommends dedicated CTT/L Spine. Neurochecks Neurosurgery consulted. 3. Elevated CPK, possibly secondary to Lipitor - held. Will monitor CPK. 4. LE Edema ?etiology LE Duplex negative for DVT. Cardiomegaly and possible congestion on CXR. BNP 634 No evidence of acute decompensation of CHF Echo ordered. 5. 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 6. Hypothyroidism - Mild elevation in TSH Further up-titration of Synthroid by PCP 7. HRN - continue Losartan., Atenolol 8. HLD - Statin held due to elevated CPK. 9. Hypomagnesemia - repleted. 10. Elevated QTc. Will monitor. DVT Px - Lovenox SQ
[2019-09-15] MEDS ORDERED: MORPHINE SULFATE 2 MG/ML VIAL ONE (14:44)
[2019-09-15] MEDS: MORPHINE SULFATE 2 MG/ML VIAL IVPUSH PRN ×2 (14:46→23:28)
[2019-09-15] MEDS: SODIUM CHLORIDE 1,000 ML IV SCH (15:10)
--- NOTE | 2019-09-15 15:26 | PN ---
Physical Exam: SUBJECTIVE: Patient seen and examined in emergency department. Patient is AAOx3 s/p right anterior shoulder dislocation. Patient's shoulder was reduced on admission to the ED but shoulder had redislocated. Large area of bruising on the anterior aspect of the right shoulder. Patient denies any associated trauma to the area prior to the dislocation. OBJECTIVE: Vital Signs Period Temp Pulse Resp BP Sys/Mazariegos Pulse Ox Last 24 Hr 97.4 F-98.8 F 62-106 17-28 114-146/62-93 93-100 GENERAL: The patient is awake, alert, and fully oriented, in MILD distress. HEAD: Normal with no signs of trauma. EYES: PERRL, extraocular movements intact, sclera anicteric, conjunctiva clear. No ptosis. ENT: Ears normal, nares patent, oropharynx clear without exudates, moist mucous membranes. NECK: Trachea midline, full range of motion, supple. LUNGS: Breath sounds equal, clear to auscultation bilaterally, no wheezes, no crackles, no accessory muscle use. HEART: Regular rate and rhythm, S1, S2 without murmur, rub or gallop. EXTREMITIES: 2+ pulses, warm, well-perfused, no edema. Laboratory Results - last 24 hr 09/14/19 09/14/19 09/14/19 20:20 20:20 20:20 WBC 12.6 H RBC 4.41 Hgb 12.8 Hct 39.7 D MCV 90.0 MCH 29.1 MCHC 32.3 RDW 15.2 Plt Count 256 MPV 7.7 Absolute Neuts (auto) 10.5 H Neutrophils % 83.6 H D Lymphocytes % 4.8 L D Monocytes % 10.9 H Eosinophils % 0.3 D Basophils % 0.4 Nucleated RBC % 0 ESR PT with INR 11.90 INR 1.01 Sodium 146 H Potassium 3.8 Chloride 110 H Carbon Dioxide 27 Anion Gap 8 BUN 24.6 H Creatinine 0.9 Est GFR (CKD-EPI)AfAm 67.10 Est GFR (CKD-EPI)NonAf 57.90 Random Glucose 150 H Calcium 8.9 Phosphorus Magnesium Total Bilirubin 0.7 AST 28 ALT 24 Alkaline Phosphatase 57 Creatine Kinase 533 H Creatine Kinase Index 1.9 CK-MB (CK-2) 10.2 H Troponin I 0.06 H C-Reactive Protein B-Natriuretic Peptide Total Protein 6.2 L Albumin 3.3 L TSH 4.42 H Free T4 0.88 Urine Color Urine Appearance Urine pH Ur Specific [place] Urine Protein Urine Glucose (UA) Urine Ketones Urine Blood Urine Nitrite Urine Bilirubin Urine Urobilinogen Ur Leukocyte Esterase Urine WBC (Auto) Urine RBC (Auto) Urine Casts (Auto) U Epithel Cells (Auto) Urine Bacteria (Auto) 09/14/19 09/15/19 09/15/19 20:20 00:52 05:30 WBC 10.4 H RBC 4.17 Hgb 12.2 Hct 37.5 MCV 89.9 MCH 29.3 MCHC 32.6 RDW 15.1 Plt Count 230 MPV 7.7 Absolute Neuts (auto) 8.4 H Neutrophils % 80.7 Lymphocytes % 6.6 L D Monocytes % 12.1 H Eosinophils % 0.1 Basophils % 0.5 Nucleated RBC % 0 ESR Cancelled PT with INR INR Sodium Potassium Chloride Carbon Dioxide Anion Gap BUN Creatinine Est GFR (CKD-EPI)AfAm Est GFR (CKD-EPI)NonAf Random Glucose Calcium Phosphorus Magnesium Total Bilirubin AST ALT Alkaline Phosphatase Creatine Kinase Creatine Kinase Index CK-MB (CK-2) Troponin I 0.06 H C-Reactive Protein B-Natriuretic Peptide 634.5 H Total Protein Albumin TSH Free T4 Urine Color Urine Appearance Urine pH Ur Specific [place] Urine Protein Urine Glucose (UA) Urine Ketones Urine Blood Urine Nitrite Urine Bilirubin Urine Urobilinogen Ur Leukocyte Esterase Urine WBC (Auto) Urine RBC (Auto) Urine Casts (Auto) U Epithel Cells (Auto) Urine Bacteria (Auto) 09/15/19 09/15/19 09/15/19 05:30 05:30 05:30 WBC RBC Hgb Hct MCV MCH MCHC RDW Plt Count MPV Absolute Neuts (auto) Neutrophils % Lymphocytes % Monocytes % Eosinophils % Basophils % Nucleated RBC % ESR 13 PT with INR INR Sodium 143 Potassium 3.7 Chloride 110 H Carbon Dioxide 26 Anion Gap 8 BUN 28.4 H Creatinine 1.1 Est GFR (CKD-EPI)AfAm 52.65 Est GFR (CKD-EPI)NonAf 45.42 Random Glucose 151 H Calcium 8.4 L Phosphorus 4.7 Magnesium 1.7 L Total Bilirubin 1.1 H AST 33 ALT 26 Alkaline Phosphatase 58 Creatine Kinase 650 H Creatine Kinase Index 1.5 CK-MB (CK-2) 10.2 H Troponin I 0.06 H C-Reactive Protein 2.8 H 6.2 H B-Natriuretic Peptide Total Protein 6.1 L Albumin 3.1 L TSH Free T4 Urine Color Urine Appearance Urine pH Ur Specific [place] Urine Protein Urine Glucose (UA) Urine Ketones Urine Blood Urine Nitrite Urine Bilirubin Urine Urobilinogen Ur Leukocyte Esterase Urine WBC (Auto) Urine RBC (Auto) Urine Casts (Auto) U Epithel Cells (Auto) Urine Bacteria (Auto) 09/15/19 05:31 WBC RBC Hgb Hct MCV MCH MCHC RDW Plt Count MPV Absolute Neuts (auto) Neutrophils % Lymphocytes % Monocytes % Eosinophils % Basophils % Nucleated RBC % ESR PT with INR INR Sodium Potassium Chloride Carbon Dioxide Anion Gap BUN Creatinine Est GFR (CKD-EPI)AfAm Est GFR (CKD-EPI)NonAf Random Glucose Calcium Phosphorus Magnesium Total Bilirubin AST ALT Alkaline Phosphatase Creatine Kinase Creatine Kinase Index CK-MB (CK-2) Troponin I C-Reactive Protein B-Natriuretic Peptide Total Protein Albumin TSH Free T4 Urine Color Dk yellow Urine Appearance Clear Urine pH 5.0 Ur Specific [place] 1.027 Urine Protein 1+ H Urine Glucose (UA) Negative Urine Ketones Negative Urine Blood Negative Urine Nitrite Negative Urine Bilirubin Negative Urine Urobilinogen 0.2 Ur Leukocyte Esterase Negative Urine WBC (Auto) 3 Urine RBC (Auto) 15 Urine Casts (Auto) 5 U Epithel Cells (Auto) 6 Urine Bacteria (Auto) 5 Active Medications Generic Name Dose Route Start Last Admin Trade Name Freq PRN Reason Stop Dose Admin Acetaminophen 650 mg 09/15/19 02:33 09/15/19 07:30 Tylenol - PO 650 mg Q4H PRN Administration PAIN LEVEL 1-3 Atenolol 50 mg 09/15/19 10:00 09/15/19 09:38 Tenormin - PO 50 mg DAILY SAAD Administration Enoxaparin Sodium 40 mg 09/15/19 10:00 09/15/19 09:37 Lovenox - SQ 40 mg DAILY SAAD Administration Sodium Chloride 1,000 mls @ 75 mls/hr 09/15/19 15:00 09/15/19 15:10 Normal Saline - IV 75 mls/hr ASDIR SAAD Administration Levothyroxine Sodium 100 mcg 09/15/19 07:00 09/15/19 07:22 Synthroid - PO 100 mcg ACBK SAAD Administration Losartan Potassium 50 mg 09/15/19 10:00 09/15/19 09:37 Cozaar - PO 50 mg DAILY SAAD Administration Morphine Sulfate 2 mg 09/15/19 14:39 09/15/19 14:46 Morphine Sulfate IVPUSH 2 mg Q4H PRN Administration PAIN LEVEL 6-10 Potassium Chloride 20 meq 09/15/19 10:00 09/15/19 09:37 K-Dur - PO 20 meq DAILY SAAD Administration Senna/Docusate Sodium 2 tablet 09/15/19 22:00 Pericolace - PO HS SAAD ASSESSMENT/PLAN: Juliann Mckeon is an 84F with a PMHx of HTN, HLD. Patient was reported to have had anteriorly dislocated her shoulder with no associated traumatic events that she could note. #anterior shoulder dislocation - CT scan preformed - Dr. Collins - neurosurgery/spinal - evaluated, does not see a need for surgery, will need MRI C-spine, T-spine, L-spine - Dr. Null - ortho - had seen Lindsey for prior surgeries - will evaluate for shoulder dislocation #Fractured vertebrae at T12 level - Ortho consult - Dr. Null - CT ordered #Edema of bl LE -Duplex US preformed negative for DVT - BNP significant 634 -ECHO order placed #HLD - home statin held due to increased CPK #HTN - EKG shows QTc -503 -continue anti hypertensive home meds - ATTENDING PHYSICIAN STATEMENT I saw and evaluated the patient. I reviewed the resident's note and discussed the case with the resident. I agree with the resident's findings and plan as documented. SUBJECTIVE: OBJECTIVE: ASSESSMENT AND PLAN:
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
--- NOTE | 2019-09-15 16:18 | ECHO ---
Version: 1 Name: LOU WIGGINS Exam: Adult Echocardiogram Study Date: 09/15/2019, 3:28 PM Age: 84 Years MMode/2D Measurements & Calculations IVSd: 1.06 cm LVIDs: 2.8 cm LVIDd: 3.9 cm LVPWd: 1.06 cm LAV (MOD-bp): 51.0 ml ACS: 2.08 cm Ao root diam: 3.8 cm LVOT diam: 2.25 cm LA dimension: 2.9 cm Doppler Measurements & Calculations MV E max danyel: 75.4 cm/sec MVA(VTI): 2.9 cm MV A max danyel: 150.8 cm/sec MV V2 max: 141.2 cm/sec MV mean P.6 mmHg MV max P.0 mmHg MV E/A: 0.50 Med E/e': 21.5 Lat E/e': 20.9 Med Peak E' Danyel: 3.5 cm/sec Lat Peak E' Danyel: 3.6 cm/sec Ao max P.1 mmHg LUCILA(I,D): 3.1 cm Ao mean P.5 mmHg LV V1 mean: 71.5 cm/sec Ao V2 max: 123.5 cm/sec LV V1 mean P.33 mmHg Procedure The study was technically difficult with many images being suboptimal in quality. Left Ventricle The left ventricular size, thickness and function are normal. Ejection Fraction = 65%. The transmitr al spectral Doppler flow pattern is suggestive of impaired LV relaxation. Right Ventricle The right ventricle is moderately dilated. The right ventricular systolic function is mild to modera tely reduced. Atria Normal left and right atrial size and function. Mitral Valve There is mild to moderate mitral annular calcification. There is mild mitral regurgitation. Tricuspid Valve The tricuspid valve is normal. There is mild tricuspid regurgitation. Aortic Valve There is mild aortic valve thickening. Mild aortic regurgitation. Pulmonic Valve The pulmonic valve is not well visualized. Great Vessels The aortic root is normal size. Normal aortic arch, descending and ascending aorta. Pericardium/Pleura There is no pericardial effusion. Tech Comments TDS due to body habitus. Patient scanned supine and in extreme pain. Spinal fracture and right shldr dislocation. Unable to lay still. Summary Statements The study was technically difficult with many images being suboptimal in quality. The left ventricular size, thickness and function are normal Ejection Fraction = 65%. The transmitral spectral Doppler flow pattern is suggestive of impaired LV relaxation. The right ventricle is moderately dilated. The right ventricular systolic function is mild to moderately reduced. Normal left and right atrial size and function. There is mild to moderate mitral annular calcification. There is mild mitral regurgitation. The tricuspid valve is normal. There is mild tricuspid regurgitation. There is mild aortic valve thickening. Mild aortic regurgitation. The pulmonic valve is not well visualized. The aortic root is normal size. Normal aortic arch, descending and ascending aorta There is no pericardial effusion. Vish Vazquez 09/15/2019, 4:17 PM Ordering Physician: Mavis Urbina Referring Physician: MAVIS URBINA Performed By: Jolynn Mason
[2019-09-15] MEDS: ATORVASTATIN CA 10 MG TABLET (FP) PO SCH (18:28)
[2019-09-15] MEDS: FENOFIBRIC ACID 135 MG CAP PO SCH (18:28)
[2019-09-15] MEDS: SENNOSIDES/DOCUSATE COMBO (SENNA PLUS) TABLET (UD) PO SCH (21:50)
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
[2019-09-16] MEDS: LEVOTHYROXINE NA 100 MCG TABLET (FP) PO SCH (06:45)
[2019-09-16] MEDS ORDERED: MAGNESIUM SULF 50% (8.12 MEQ/2 ML-1 GM VIAL) IVPB ONE (07:19)
[2019-09-16 07:35] LABS: BASO % 1.2 % (0-2.0); EOS % 0.6 % (0-4.5); HEMATOCRIT 32.1 % (32.4-45.2); HEMOGLOBIN 10.4 GM/dL (10.7-15.3); LYMPH % 7.8 % (8-40); MCHC 32.5 g/dl (32.0-36.0); MEAN CELL VOLUME 89.3 fl (80-96); MEAN PLT VOLUME 8.1 fl (7.5-11.1); MONO % 12.3 % (3.8-10.2); NEUT % 78.1 % (42.8-82.8); PLATELET COUNT 226 K/MM3 (134-434); RBC 3.59 M/mm3 (3.60-5.2); RDW 15.1 % (11.6-15.6); WHITE BLOOD COUNT 10.5 K/mm3 (4.0-10.0)
[2019-09-16 08:01] LABS: ALBUMIN 2.6 g/dl (3.4-5.0); BILIRUBIN,TOTAL 1.3 mg/dL (0.2-1); BLOOD UREA NITROGEN 35.4 mg/dL (7-18); CALCIUM 8.5 mg/dL (8.5-10.1); CREATININE 1.1 mg/dL (0.55-1.3); MAGNESIUM 2.4 mg/dL (1.8-2.4); PHOSPHOROUS 3.5 mg/dL (2.5-4.9); POTASSIUM 4.1 mmol/L (3.5-5.1); TOT PROT 5.3 g/dl (6.4-8.2)
[2019-09-16] MEDS: DORZOLAMIDE 2% HCL OPHTHALMIC SOLUTION 10 ML BOTTLE OU SCH ×2 (09:36→21:53)
[2019-09-16] MEDS: BRIMONIDINE TARTRATE 0.15% OPHTHALMIC 5 ML BOTTLE OD SCH ×2 (09:36→21:52)
[2019-09-16] MEDS: LOSARTAN POTASSIUM 50 MG TABLET (FP) PO SCH (09:42)
[2019-09-16] MEDS: POTASSIUM CHLORIDE TABS 20 MEQ TABLET.ER (FP) PO SCH (09:42)
[2019-09-16] MEDS: ENOXAPARIN NA (PORCINE) 40 MG/0.4 ML DISP.SYRIN SQ SCH (09:42)
[2019-09-16] MEDS: ATENOLOL 50 MG TABLET (FP) PO SCH (09:42)
[2019-09-16] MEDS: FENOFIBRIC ACID 135 MG CAP PO SCH (09:43)
--- NOTE | 2019-09-16 09:44 | EKG ---
Test Reason : Blood Pressure : / mmHG Vent. Rate : 072 BPM Atrial Rate : 072 BPM P-R Int : 208 ms QRS Dur : 090 ms QT Int : 476 ms P-R-T Axes : 033 -03 055 degrees QTc Int : 521 ms NORMAL SINUS RHYTHM WITH 1ST DEGREE A-V BLOCK PROLONGED QT NONSPECIFIC ST ABNORMALITY ABNORMAL ECG Confirmed by MD JONES MOYSES ([id number]) on 09/16/2019 9:44:33 AM Referred By: Confirmed By:GIO JONES MD
--- NOTE | 2019-09-16 09:49 | PN ---
Progress Note (short form) - Note Progress Note: NEUROSURGERY In telemetry R shoulder pain. In sling PE: AF, VSS HEENT- NC/AT; neck- supple; Cor- RR; Lungs- CTA B; Abd- benign, obese; Ext- some bruises; Back- ecchymosis and edema Confused and anxious; following commands; in brace CN- intact; Motor- 4+ B UE and distal B LE; 4/5 prox B LE pain limited; Sensation- intact LT B LE/UE; DTR- hyporeflexic Head CT- moderate atrophy, moderate periventricular small vessel dz, no bleed, no fx T spine CT- T11 posterior/superior vertebral fx with mid height depression; no significant bony retropulsion; widening of T10-11 disc space anteriorly > posteriorly; posterior vertebral element intact Acute T11 fax with hyperextension/distraction injury TLSO brace (rigid and internally padded) whenever OOB x 3 months MRI to assess disc, ligament, and soft tissue pathology Upright T spine x-rays AP/lat in 2 weeks in brace to assess T10-11 alignment Spine surgery should ideally be avoided given her age, medical conditions, obesity and osteoporosis Ortho and tx and f/u for R shoulder dislocation PT for strengthening and mobilization Rehab likely needed D/w medical team
[2019-09-16] MEDS: SODIUM CHLORIDE 1,000 ML IV SCH (09:53)
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
[2019-09-16] MEDS ORDERED: PT OWN MED DRAWER 7, Y5N ONE ×2 (12:00→20:46)
--- NOTE | 2019-09-16 14:55 | PN ---
Teaching Attending Note Name of Resident: Александр Johnson ATTENDING PHYSICIAN STATEMENT I saw and evaluated the patient. I reviewed the resident's note and discussed the case with the resident. I agree with the resident's findings and plan as documented. SUBJECTIVE: Feeling well. Denies shoulder or back pain. OBJECTIVE: Afebrile, Hemodynamically Stable. AAO x 2 Last Vital Signs Temp Pulse Resp BP Pulse Ox 98.2 F 97 H 20 146/82 93 L 09/15/19 06:11 09/15/19 07:15 09/15/19 07:15 09/15/19 07:15 09/15/19 07:15 HEENT - Atraumatic, Normocephalic Heart - S1, S2, RRR Lungs - clear to auscultation Abdomen - High BMI. Soft, non-tender. Bowel Sounds normal. Extremities - Edema ++. Neuro - AAO x 2. Mildly decreased Power LEs. No focal deficits. Laboratory Results - last 24 hr 09/14/19 09/14/19 09/14/19 20:20 20:20 20:20 WBC 12.6 H RBC 4.41 Hgb 12.8 Hct 39.7 D MCV 90.0 MCH 29.1 MCHC 32.3 RDW 15.2 Plt Count 256 MPV 7.7 Absolute Neuts (auto) 10.5 H Neutrophils % 83.6 H D Lymphocytes % 4.8 L D Monocytes % 10.9 H Eosinophils % 0.3 D Basophils % 0.4 Nucleated RBC % 0 ESR PT with INR 11.90 INR 1.01 Sodium 146 H Potassium 3.8 Chloride 110 H Carbon Dioxide 27 Anion Gap 8 BUN 24.6 H Creatinine 0.9 Est GFR (CKD-EPI)AfAm 67.10 Est GFR (CKD-EPI)NonAf 57.90 Random Glucose 150 H Calcium 8.9 Phosphorus Magnesium Total Bilirubin 0.7 AST 28 ALT 24 Alkaline Phosphatase 57 Creatine Kinase 533 H Creatine Kinase Index 1.9 CK-MB (CK-2) 10.2 H Troponin I 0.06 H C-Reactive Protein B-Natriuretic Peptide Total Protein 6.2 L Albumin 3.3 L TSH 4.42 H Free T4 0.88 Urine Color Urine Appearance Urine pH Ur Specific [place] Urine Protein Urine Glucose (UA) Urine Ketones Urine Blood Urine Nitrite Urine Bilirubin Urine Urobilinogen Ur Leukocyte Esterase Urine WBC (Auto) Urine RBC (Auto) Urine Casts (Auto) U Epithel Cells (Auto) Urine Bacteria (Auto) 09/14/19 09/15/19 09/15/19 20:20 00:52 05:30 WBC 10.4 H RBC 4.17 Hgb 12.2 Hct 37.5 MCV 89.9 MCH 29.3 MCHC 32.6 RDW 15.1 Plt Count 230 MPV 7.7 Absolute Neuts (auto) 8.4 H Neutrophils % 80.7 Lymphocytes % 6.6 L D Monocytes % 12.1 H Eosinophils % 0.1 Basophils % 0.5 Nucleated RBC % 0 ESR Cancelled PT with INR INR Sodium Potassium Chloride Carbon Dioxide Anion Gap BUN Creatinine Est GFR (CKD-EPI)AfAm Est GFR (CKD-EPI)NonAf Random Glucose Calcium Phosphorus Magnesium Total Bilirubin AST ALT Alkaline Phosphatase Creatine Kinase Creatine Kinase Index CK-MB (CK-2) Troponin I 0.06 H C-Reactive Protein B-Natriuretic Peptide 634.5 H Total Protein Albumin TSH Free T4 Urine Color Urine Appearance Urine pH Ur Specific [place] Urine Protein Urine Glucose (UA) Urine Ketones Urine Blood Urine Nitrite Urine Bilirubin Urine Urobilinogen Ur Leukocyte Esterase Urine WBC (Auto) Urine RBC (Auto) Urine Casts (Auto) U Epithel Cells (Auto) Urine Bacteria (Auto) 09/15/19 09/15/19 09/15/19 05:30 05:30 05:30 WBC RBC Hgb Hct MCV MCH MCHC RDW Plt Count MPV Absolute Neuts (auto) Neutrophils % Lymphocytes % Monocytes % Eosinophils % Basophils % Nucleated RBC % ESR 13 PT with INR INR Sodium 143 Potassium 3.7 Chloride 110 H Carbon Dioxide 26 Anion Gap 8 BUN 28.4 H Creatinine 1.1 Est GFR (CKD-EPI)AfAm 52.65 Est GFR (CKD-EPI)NonAf 45.42 Random Glucose 151 H Calcium 8.4 L Phosphorus 4.7 Magnesium 1.7 L Total Bilirubin 1.1 H AST 33 ALT 26 Alkaline Phosphatase 58 Creatine Kinase 650 H Creatine Kinase Index 1.5 CK-MB (CK-2) 10.2 H Troponin I 0.06 H C-Reactive Protein 2.8 H 6.2 H B-Natriuretic Peptide Total Protein 6.1 L Albumin 3.1 L TSH Free T4 Urine Color Urine Appearance Urine pH Ur Specific [place] Urine Protein Urine Glucose (UA) Urine Ketones Urine Blood Urine Nitrite Urine Bilirubin Urine Urobilinogen Ur Leukocyte Esterase Urine WBC (Auto) Urine RBC (Auto) Urine Casts (Auto) U Epithel Cells (Auto) Urine Bacteria (Auto) 09/15/19 05:31 WBC RBC Hgb Hct MCV MCH MCHC RDW Plt Count MPV Absolute Neuts (auto) Neutrophils % Lymphocytes % Monocytes % Eosinophils % Basophils % Nucleated RBC % ESR PT with INR INR Sodium Potassium Chloride Carbon Dioxide Anion Gap BUN Creatinine Est GFR (CKD-EPI)AfAm Est GFR (CKD-EPI)NonAf Random Glucose Calcium Phosphorus Magnesium Total Bilirubin AST ALT Alkaline Phosphatase Creatine Kinase Creatine Kinase Index CK-MB (CK-2) Troponin I C-Reactive Protein B-Natriuretic Peptide Total Protein Albumin TSH Free T4 Urine Color Dk yellow Urine Appearance Clear Urine pH 5.0 Ur Specific [place] 1.027 Urine Protein 1+ H Urine Glucose (UA) Negative Urine Ketones Negative Urine Blood Negative Urine Nitrite Negative Urine Bilirubin Negative Urine Urobilinogen 0.2 Ur Leukocyte Esterase Negative Urine WBC (Auto) 3 Urine RBC (Auto) 15 Urine Casts (Auto) 5 U Epithel Cells (Auto) 6 Urine Bacteria (Auto) 5 Current Medications Generic Name Dose Route Start Last Admin Trade Name Freq PRN Reason Stop Dose Admin Acetaminophen 650 mg 09/15/19 02:33 09/15/19 07:30 Tylenol - PO 650 mg Q4H PRN Administration PAIN LEVEL 6-10 Atenolol 50 mg 09/15/19 10:00 09/15/19 09:38 Tenormin - PO 50 mg DAILY SAAD Administration Enoxaparin Sodium 40 mg 09/15/19 10:00 09/15/19 09:37 Lovenox - SQ 40 mg DAILY SAAD Administration Levothyroxine Sodium 100 mcg 09/15/19 07:00 09/15/19 07:22 Synthroid - PO 100 mcg ACBK SAAD Administration Losartan Potassium 50 mg 09/15/19 10:00 09/15/19 09:37 Cozaar - PO 50 mg DAILY SAAD Administration Potassium Chloride 20 meq 09/15/19 10:00 09/15/19 09:37 K-Dur - PO 20 meq DAILY SAAD Administration Senna/Docusate Sodium 2 tablet 09/15/19 22:00 Pericolace - PO HS [facility] Home Medications Medication Instructions Recorded Atenolol [Tenormin -] 50 mg PO DAILY #0 tablet 05/10/11 Atorvastatin Ca [Lipitor] 10 mg PO DAILY 06/10/13 Docosahexanoic Acid/Epa [Fish Oil 1 each PO DAILY 06/10/13 Concentrate Softgel] Fenofibrate 160 mg PO DAILY 06/10/13 Levothyroxine [Synthroid -] 100 mcg PO DAILY 06/10/13 Losartan Potassium 50 mg PO DAILY 06/10/13 Multivitamin/Iron/Folic Acid 1 each PO DAILY 06/10/13 [Centrum Complete Multivit Tab] Potassium Chloride 20 meq PO DAILY 06/10/13 Aspirin [ASA -] 325 mg PO DAILY@0800 #0 tablet 06/27/13 Oxycodone HCl/Acetaminophen 1 - 2 combo PO Q6H PRN #0 tablet 06/27/13 [Percocet 5-325 mg Tablet] Sennosides/Docusate Sodium 2 each PO HS #0 tablet 06/27/13 [Pericolace -] ASSESSMENT AND PLAN: 84 year old female with history of HTN, HLD, Hypothyroidism, presents with LE weakness, R shoulder pain after being carried up stairs in a bed-sheet due to poor mobility. 1. Right Anterior Shoulder Dislocation Ortho consulted. Due to time elapsed from injury and concomitant spinal injury, reocmmendation for no surgical intervention/manipulation currently. Sling. Ortho out-patient follow up. 2. T11 Spinal fracture, unstable Neurosurgery evaluated and recommends TSLO Brace, MRI, and PT/Rehab. 3. Elevated CPK, possibly secondary to Lipitor - CPK rising, will start gentle IV hydration. 4. LE Edema, likely venous stasis LE Duplex negative for DVT. Cardiomegaly and possible congestion on CXR. BNP 634 No evidence of acute decompensation of CHF Echo - impaired LV relaxation. 5. 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 6. Hypothyroidism - Mild elevation in TSH 4.42 Further up-titration of Synthroid as out-patient by PCP 7. HRN - continue Losartan., Atenolol 8. HLD - Statin held due to elevated CPK. 9. Hypomagnesemia - repleted. 10. Elevated QTc at 521. Cardiology consult for elevated QTc. DVT Px - Lovenox SQ
[2019-09-16] MEDS ORDERED: SODIUM CHLORIDE 1,000 ML IV SCH (15:00)
--- NOTE | 2019-09-16 15:33 | PN ---
Physical Exam: SUBJECTIVE: Patient seen and examined at bedside. Patient is in restraints and a right arm sling. Patient goes in and out of dementia. Answered wrong to year, president, and location at current moment. Bruising progressed however patient has good brachial pulses and hands are warm and well perfused. Patient was seen by vascular, ortho, and neurosurgery. OBJECTIVE: Vital Signs Period Temp Pulse Resp BP Sys/Mazariegos Pulse Ox Last 24 Hr 97.7 F-98.9 F 71-94 20-24 69-138/56-76 94-96 GENERAL: The patient is awake, alert, and fully oriented, in no acute distress. HEAD: Normal with no signs of trauma. EYES: PERRL, extraocular movements intact, sclera anicteric, conjunctiva clear. No ptosis. ENT: Ears normal, nares patent, oropharynx clear without exudates, moist mucous membranes. NECK: Trachea midline, full range of motion, supple. LUNGS: Breath sounds equal, clear to auscultation bilaterally, no wheezes, no crackles, no accessory muscle use. HEART: Regular rate and rhythm, S1, S2 without murmur, rub or gallop. ABDOMEN: Soft, nontender, nondistended, normoactive bowel sounds, no guarding, no rebound, no hepatosplenomegaly, no masses. EXTREMITIES: 2+ pulses, warm, well-perfused, no edema. PSYCH: waxing/waning dementia SKIN: large area of bruising on the right upper shoulder. Laboratory Results - last 24 hr 09/14/19 09/14/19 09/16/19 20:10 20:20 06:55 WBC 10.5 H RBC 3.59 L Hgb 10.4 L Hct 32.1 L MCV 89.3 MCH 29.0 MCHC 32.5 RDW 15.1 Plt Count 226 MPV 8.1 Absolute Neuts (auto) 8.2 H Neutrophils % 78.1 Lymphocytes % 7.8 L Monocytes % 12.3 H Eosinophils % 0.6 D Basophils % 1.2 Nucleated RBC % 0 Sodium Potassium Chloride Carbon Dioxide Anion Gap BUN Creatinine Est GFR (CKD-EPI)AfAm Est GFR (CKD-EPI)NonAf Random Glucose Calcium Phosphorus Magnesium Total Bilirubin AST ALT Alkaline Phosphatase Creatine Kinase Creatine Kinase Index CK-MB (CK-2) Total Protein Albumin Free T3 2.7 COVID-19 (VENKATESH) Not detected 09/16/19 06:55 WBC RBC Hgb Hct MCV MCH MCHC RDW Plt Count MPV Absolute Neuts (auto) Neutrophils % Lymphocytes % Monocytes % Eosinophils % Basophils % Nucleated RBC % Sodium 144 Potassium 4.1 Chloride 112 H Carbon Dioxide 24 Anion Gap 8 BUN 35.4 H Creatinine 1.1 Est GFR (CKD-EPI)AfAm 52.65 Est GFR (CKD-EPI)NonAf 45.42 Random Glucose 114 H Calcium 8.5 Phosphorus 3.5 Magnesium 2.4 Total Bilirubin 1.3 H AST 40 H ALT 25 Alkaline Phosphatase 47 Creatine Kinase 1105 H Creatine Kinase Index 1.2 CK-MB (CK-2) 14.0 H Total Protein 5.3 L Albumin 2.6 L Free T3 COVID-19 (VENKATESH) Active Medications Generic Name Dose Route Start Last Admin Trade Name Freq PRN Reason Stop Dose Admin Acetaminophen 650 mg 09/15/19 02:33 09/15/19 16:16 Tylenol - PO 650 mg Q4H PRN Administration PAIN LEVEL 1-3 Atenolol 50 mg 09/15/19 10:00 09/16/19 09:42 Tenormin - PO Not Given DAILY SAAD Atorvastatin Calcium 10 mg 09/15/19 17:30 09/15/19 18:28 Lipitor - PO 10 mg HS SAAD Administration Brimonidine Tartrate 1 drop 09/16/19 10:00 09/16/19 09:36 Alphagan 0.15% - OD 1 drop BID SAAD Administration Dorzolamide HCl 1 drop 09/16/19 10:00 09/16/19 09:36 Trusopt 2% OU 1 drop BID SAAD Administration Enoxaparin Sodium 40 mg 09/15/19 10:00 09/16/19 09:42 Lovenox - SQ 40 mg DAILY SAAD Administration Fenofibric Acid 135 mg 09/15/19 17:30 09/16/19 09:43 Trilipix - PO Not Given DAILY SAAD Sodium Chloride 1,000 mls @ 75 mls/hr 09/16/19 15:00 09/16/19 15:15 Normal Saline - IV Not Given ASDIR SAAD Levothyroxine Sodium 100 mcg 09/15/19 07:00 09/16/19 06:45 Synthroid - PO 100 mcg ACBK SAAD Administration Losartan Potassium 50 mg 09/15/19 10:00 09/16/19 09:42 Cozaar - PO Not Given DAILY SAAD Morphine Sulfate 2 mg 09/15/19 14:39 09/15/19 23:28 Morphine Sulfate IVPUSH 2 mg Q4H PRN Administration PAIN LEVEL 6-10 Potassium Chloride 20 meq 09/15/19 10:00 09/16/19 09:42 K-Dur - PO Not Given DAILY SAAD Senna/Docusate Sodium 2 tablet 09/15/19 22:00 09/15/19 21:50 Pericolace - PO 2 tablet HS SAAD Administration ASSESSMENT/PLAN: Lindsey is an 84F w h/o of HTN/HLD, obesity, prolonged QTc on EKG who reports to the ED for a dislocated shoulder and a fracture of T11 vertibrae without compromise to the spinal cord or nerve roots. #T11 vertebral fracture - Neurosurgery recommended MRI work up - Dr. cobb on case - does not suspect spinal cord involvement - will confirm via MRI - Ortho seen - unable to surgically intervene - patient must be intubated and undergo full paralysis for surgery - deemed a big risk and potentialy not a candidate for muscle and shoulder repair - pain controlled with morphine and tylenol - CT scan shows T11 posterior/superior vertebral fx with mid height depression; no significant bony retropulsion; widening of T10-T11 disc space anteriorly > posteriorly; posterior vertebral element intact - Acute T11 fax with hyperextension/distraction injury - Patient will remain in a TSLO brace until instructed otherwise for spinal cord and vertebral stabilization ATTENDING PHYSICIAN STATEMENT I saw and evaluated the patient. I reviewed the resident's note and discussed the case with the resident. I agree with the resident's findings and plan as documented. SUBJECTIVE: OBJECTIVE: ASSESSMENT AND PLAN:
[2019-09-16] MEDS: ACETAMINOPHEN 325 MG TABLET (FP) PO PRN (15:43)
[2019-09-16] MEDS ORDERED: FUROSEMIDE 40 MG/4 ML INJECTABLE VIAL IVPUSH ONE (18:54)
[2019-09-16] MEDS: ATORVASTATIN CA 10 MG TABLET (FP) PO SCH (21:52)
[2019-09-16] MEDS: MORPHINE SULFATE 2 MG/ML VIAL IVPUSH PRN (21:52)
[2019-09-16] MEDS: SENNOSIDES/DOCUSATE COMBO (SENNA PLUS) TABLET (UD) PO SCH (21:52)
[2019-09-17] MEDS: LEVOTHYROXINE NA 100 MCG TABLET (FP) PO SCH (06:39)
[2019-09-17 07:48] LABS: ALBUMIN 2.5 g/dl (3.4-5.0); ALK PHOS 57 U/L (45-117); ANION GAP 7 MMOL/L (8-16); BILIRUBIN,TOTAL 1.4 mg/dL (0.2-1); BLOOD UREA NITROGEN 35.4 mg/dL (7-18); CALCIUM 8.5 mg/dL (8.5-10.1); CHLORIDE 112 mmol/L (98-107); CO2 26 mmol/L (21-32); GLUCOSE,RANDOM 120 mg/dL (74-106); MAGNESIUM 2.3 mg/dL (1.8-2.4); PHOSPHOROUS 3.2 mg/dL (2.5-4.9); POTASSIUM 3.9 mmol/L (3.5-5.1); SGOT/AST 42 U/L (15-37); SGPT/ALT 25 U/L (13-61); SODIUM 145 mmol/L (136-145); TOT PROT 5.5 g/dl (6.4-8.2)
[2019-09-17 08:25] LABS: BASO % 0.7 % (0-2.0); EOS % 1.4 % (0-4.5); HEMATOCRIT 32.6 % (32.4-45.2); HEMOGLOBIN 10.4 GM/dL (10.7-15.3); LYMPH % 7.5 % (8-40); MCH 28.9 pg (25.7-33.7); MEAN CELL VOLUME 90.2 fl (80-96); MEAN PLT VOLUME 8.1 fl (7.5-11.1); MONO % 13.5 % (3.8-10.2); NEUT % 76.9 % (42.8-82.8); PLATELET COUNT 237 K/MM3 (134-434); RBC 3.61 M/mm3 (3.60-5.2); RDW 15.5 % (11.6-15.6); WHITE BLOOD COUNT 9.5 K/mm3 (4.0-10.0)
[2019-09-17] MEDS ORDERED: PT OWN MED DRAWER 7, Y5N ONE (08:39)
--- NOTE | 2019-09-17 08:54 | PN ---
Progress Note (short form) - Note Progress Note: NEUROSURGERY In telemetry R shoulder pain less. In sling Denies significant back pain PE: Tmax 99.4, AF, VSS HEENT- NC/AT; neck- supple; Cor- RR; Lungs- CTA B; Abd- benign, obese; Ext- some bruises; Back- ecchymosis and edema less anxious; following commands CN- intact; Motor- 4+ B UE and distal B LE; 4/5 prox B LE pain limited; Sensation- intact LT B LE/UE; DTR- hyporeflexic Head CT- moderate atrophy, moderate periventricular small vessel dz, no bleed, no fx T spine CT- T11 posterior/superior vertebral fx with mid height depression; no significant bony retropulsion; widening of T10-11 disc space anteriorly > posteriorly; posterior vertebral element intact Acute T11 fax with hyperextension/distraction injury TLSO brace whenever out fo bed (OOB) x 3 months MRI to assess disc, ligament, and soft tissue pathology, though pt size limits possibility Upright T spine x-rays AP/lat in 2 weeks in brace to assess T10-11 alignment Spine surgery should ideally be avoided given her age, medical conditions, obesity and osteoporosis Ortho f/u for R shoulder dislocation PT for strengthening and mobilization Rehab
[2019-09-17] MEDS: LOSARTAN POTASSIUM 50 MG TABLET (FP) PO SCH (09:19)
[2019-09-17] MEDS: ENOXAPARIN NA (PORCINE) 40 MG/0.4 ML DISP.SYRIN SQ SCH (09:19)
[2019-09-17] MEDS: ATENOLOL 50 MG TABLET (FP) PO SCH (09:19)
[2019-09-17] MEDS: FENOFIBRIC ACID 135 MG CAP PO SCH (09:19)
[2019-09-17] MEDS: POTASSIUM CHLORIDE TABS 20 MEQ TABLET.ER (FP) PO SCH (09:19)
[2019-09-17] MEDS: DORZOLAMIDE 2% HCL OPHTHALMIC SOLUTION 10 ML BOTTLE OU SCH ×2 (09:19→21:55)
[2019-09-17] MEDS: BRIMONIDINE TARTRATE 0.15% OPHTHALMIC 5 ML BOTTLE OD SCH ×2 (09:19→21:33)
--- NOTE | 2019-09-17 09:46 | CON.CARD ---
Consult Consult Specialty:: Cardiology Referred by:: Migue Reason for Consultation:: Abnormal ECG - History of Present Illness Chief Complaint: Right shoulder and back pain History of Present Illness: The patient is an 84-year-old obese female, with a history of hypertension, hyperlipidemia, hypothyroidism, admitted 09/15/2019 with right shoulder and back pains. Noted to have a dislocated right shoulder and collapsed vertebrae. The patient was evaluated by orthopedics who opted on conservative care at this point. The patient denied chest pains and shortness of breath. No palpitations. No cardiac complaints. The patient is quite comfortable. ECG showed sinus rhythm with first-degree AV block and prolonged QT interval. No acute ST-T changes. CPKs are elevated with normal troponins. Echocardiogram 09/15/2019 was a technically difficult study revealing normal left ventricular ejection fraction, dilated and hypokinetic right ventricle with mild aortic mitral and tricuspid regurgitation. - History Source History Provided By: Patient, Medical Record Limitations to Obtaining History: Other (Forgetful) - Alcohol/Substance Use Hx Alcohol Use: Yes (SELDOM) - Smoking History Smoking history: Never smoked Have you smoked in the past 12 months: No Aproximately how many cigarettes per day: 0 Home Medications - Allergies Allergies/Adverse Reactions: Allergies Allergy/AdvReac Type Severity Reaction Status Date / Time No Known Drug Allergies Allergy Verified 09/14/19 19:35 - Home Medications Home Medications: Ambulatory Orders Atenolol [Tenormin -] 50 mg PO DAILY #0 tablet 05/10/11 Atorvastatin Ca [Lipitor] 10 mg PO DAILY 06/10/13 Fenofibrate 160 mg PO DAILY 06/10/13 Levothyroxine [Synthroid -] 100 mcg PO DAILY 06/10/13 Losartan Potassium 50 mg PO DAILY 06/10/13 Potassium Chloride 20 meq PO DAILY 06/10/13 Brimonidine Tartrate [Alphagan P] 10 ml OP BID 09/15/19 Brinzolamide [Azopt (Non-Formulary)] 10 ml OP BID 09/15/19 Review of Systems - Review of Systems Constitutional: reports: Malaise, Weakness Eyes: reports: No Symptoms HENT: reports: No Symptoms Neck: reports: No Symptoms Cardiovascular: reports: No Symptoms Gastrointestinal: reports: No Symptoms Genitourinary: reports: No Symptoms Breasts: reports: No Symptoms Reported Musculoskeletal: reports: Back Pain, Other (Right shoulder pain) Integumentary: reports: No Symptoms Neurological: reports: No Symptoms Endocrine: reports: No Symptoms Hematology/Lymphatic: reports: No Symptoms Psychiatric: reports: No Symptoms Vital Signs: Vital Signs Temperature 97.6 F 09/17/19 06:00 Pulse Rate 88 09/17/19 06:00 Respiratory Rate 22 H 09/17/19 06:00 Blood Pressure 118/71 09/17/19 06:00 O2 Sat by Pulse Oximetry (%) 95 09/17/19 06:00 Constitutional: Yes: No Distress, Obese Eyes: Yes: WNL, Conjunctiva Clear, EOM Intact HENT: Yes: WNL, Atraumatic, Normocephalic Neck: Yes: WNL, Supple, Trachea Midline Respiratory: Yes: WNL, Regular, CTA Bilaterally Gastrointestinal: Yes: WNL, Normal Bowel Sounds, Soft Renal/: Yes: WNL Cardiovascular: Yes: WNL, Regular Rate and Rhythm JVD: No Carotid Bruit: No PMI: Non-Displaced Heart Sounds: Yes: S1, S2 Murmur: Yes: Systolic Murmur, Grade 2 Musculoskeletal: Yes: Back Pain, Muscle Pain, Other (Right shoulder discomfort) Extremities: Yes: WNL Edema: LLE: Trace, RLE: Trace Peripheral Pulses: 1+ Left Carotid, 1+ Right Carotid, 1+ Left Femoral, 1+ Right Femoral, 1+ Left Popliteal, 1+ Right Popliteal, 1+ Left Doralis Pedis, 1+ Right Dorsalis Pedis Integumentary: Yes: WNL Neurological: Yes: Alert, Oriented Psychiatric: Yes: WNL, Alert, Oriented - Other Data Labs, Other Data: CBC, BMP 09/17/19 06:15 09/17/19 06:15 INR, PTT INR 1.01 (0.83-1.09) 09/14/19 20:20 Assessment/Plan The patient is an 84-year-old obese female, with a history of hypertension, hyperlipidemia, hypothyroidism, admitted 09/15/2019 with right shoulder and back pains. Noted to have a dislocated right shoulder and collapsed vertebrae. The patient was evaluated by orthopedics who opted on conservative care at this point. The patient denied chest pains and shortness of breath. No palpitations. No cardiac complaints. The patient is quite comfortable. ECG showed sinus rhythm with first-degree AV block and prolonged QT interval. No acute ST-T changes. CPKs are elevated with normal troponins. Echocardiogram 09/15/2019 was a technically difficult study revealing normal left ventricular ejection fraction, dilated and hypokinetic right ventricle with mild aortic mitral and tricuspid regurgitation. There is no evidence of ischemia nor acute coronary syndrom. No significant pulmonary congestion. Trace bilateral lower extremity edema. Slight QT interval prolongation on ECG. Electrolytes are well repleted. No arrhythmias documented on telemetry. No medications that prolong QT interval on board.No intervention is needed at this point. Consider ruling out chronic pulmonary emboli, given echo findings of RV strain. There is no need for further cardiac work-up in the setting. Please do not hesitate to call us PRN.
[2019-09-17] MEDS ORDERED: FUROSEMIDE 40 MG/4 ML INJECTABLE VIAL IVPUSH ONE (10:40)
[2019-09-17] MEDS ORDERED: ALBUTEROL SO4 2.5/IPRATROPIUM 0.5 INH SOL 3 ML VIAL.NEB. NEB ONE (10:40)
[2019-09-17] MEDS ORDERED: LORazepam 1 MG TABLET PO PRN (12:58)
--- NOTE | 2019-09-17 13:33 | PN ---
Teaching Attending Note Name of Resident: Александр Johnson ATTENDING PHYSICIAN STATEMENT I saw and evaluated the patient. I reviewed the resident's note and discussed the case with the resident. I agree with the resident's findings and plan as documented. SUBJECTIVE: Feeling well. Denies shoulder or back pain. Developed SOB, and requiring IV Lasix and supplemental O2 overnight. OBJECTIVE: Afebrile, Hemodynamically Stable. AAO x 3. Desaturated to 84% on RA, requiring supplemental O2. Last Vital Signs Temp Pulse Resp BP Pulse Ox 99.3 F 81 20 137/74 95 09/17/19 10:00 09/17/19 10:00 09/17/19 10:00 09/17/19 10:00 09/17/19 10:00 Heart - S1, S2, RRR Lungs - clear to auscultation, reduced at bases Abdomen - High BMI. Soft, non-tender. Bowel Sounds normal. Extremities - Edema + Neuro - AAO x 3. Mildly decreased Power LEs. No focal deficits. Laboratory Results - last 24 hr 09/17/19 09/17/19 06:15 06:15 WBC 9.5 RBC 3.61 Hgb 10.4 L Hct 32.6 MCV 90.2 MCH 28.9 MCHC 32.0 RDW 15.5 Plt Count 237 MPV 8.1 Absolute Neuts (auto) 7.3 Neutrophils % 76.9 Lymphocytes % 7.5 L Monocytes % 13.5 H Eosinophils % 1.4 D Basophils % 0.7 Nucleated RBC % 0 Sodium 145 Potassium 3.9 Chloride 112 H Carbon Dioxide 26 Anion Gap 7 L BUN 35.4 H Creatinine 1.0 Est GFR (CKD-EPI)AfAm 59.08 Est GFR (CKD-EPI)NonAf 50.97 Random Glucose 120 H Calcium 8.5 Phosphorus 3.2 Magnesium 2.3 Total Bilirubin 1.4 H AST 42 H ALT 25 Alkaline Phosphatase 57 Creatine Kinase 1018 H Creatine Kinase Index 0.5 CK-MB (CK-2) 5.6 H Troponin I < 0.02 Total Protein 5.5 L Albumin 2.5 L Current Medications Generic Name Dose Route Start Last Admin Trade Name Freq PRN Reason Stop Dose Admin Acetaminophen 650 mg 09/15/19 02:33 09/16/19 15:43 Tylenol - PO 650 mg Q4H PRN Administration PAIN LEVEL 1-3 Atenolol 50 mg 09/15/19 10:00 09/17/19 09:19 Tenormin - PO 50 mg DAILY SAAD Administration Atorvastatin Calcium 10 mg 09/15/19 17:30 09/16/19 21:52 Lipitor - PO 10 mg HS SAAD Administration Brimonidine Tartrate 1 drop 09/16/19 10:00 09/17/19 09:19 Alphagan 0.15% - OD 1 drop BID SAAD Administration Dorzolamide HCl 1 drop 09/16/19 10:00 09/17/19 09:19 Trusopt 2% OU 1 drop BID SAAD Administration Enoxaparin Sodium 40 mg 09/15/19 10:00 09/17/19 09:19 Lovenox - SQ 40 mg DAILY SAAD Administration Fenofibric Acid 135 mg 09/15/19 17:30 09/17/19 09:19 Trilipix - PO 135 mg DAILY SAAD Administration Levothyroxine Sodium 100 mcg 09/15/19 07:00 09/17/19 06:39 Synthroid - PO 100 mcg ACBK SAAD Administration Lorazepam 1 mg 09/17/19 12:58 Ativan - PO DAILY PRN ANXIETY Losartan Potassium 50 mg 09/15/19 10:00 09/17/19 09:19 Cozaar - PO 50 mg DAILY SAAD Administration Morphine Sulfate 2 mg 09/15/19 14:39 09/16/19 21:52 Morphine Sulfate IVPUSH 2 mg Q4H PRN Administration PAIN LEVEL 6-10 Potassium Chloride 20 meq 09/15/19 10:00 09/17/19 09:19 K-Dur - PO 20 meq DAILY SAAD Administration Senna/Docusate Sodium 2 tablet 09/15/19 22:00 09/16/19 21:52 Pericolace - PO 2 tablet HS SAAD Administration Home Medications Medication Instructions Recorded Atenolol [Tenormin -] 50 mg PO DAILY #0 tablet 05/10/11 Atorvastatin Ca [Lipitor] 10 mg PO DAILY 06/10/13 Fenofibrate 160 mg PO DAILY 06/10/13 Levothyroxine [Synthroid -] 100 mcg PO DAILY 06/10/13 Losartan Potassium 50 mg PO DAILY 06/10/13 Potassium Chloride 20 meq PO DAILY 06/10/13 Brimonidine Tartrate [Alphagan P] 10 ml OP BID 09/15/19 Brinzolamide [Azopt 10 ml OP BID 09/15/19 (Non-Formulary)] ASSESSMENT AND PLAN: 84 year old female with history of HTN, HLD, Hypothyroidism, presents with LE weakness, R shoulder pain after being carried up stairs in a bed-sheet due to poor mobility. 1. Right Anterior Shoulder Dislocation Ortho consulted and due to time elapsed from injury and concomitant spinal injury, recommendation for no surgical intervention/manipulation currently. Sling. Ortho out-patient follow up. 2. T11 Spinal fracture, unstable Neurosurgery evaluated and recommends TLSO Brace, MRI, and PT/Rehab. Awaiting MRI, will require 1mg PO Ativan prior to imaging study. 3. Elevated CPK, possibly secondary to Lipitor - desaturated yesterday after starting on IV hydration. IV hydration stopped. Received IV Lasix, will give another dose 40mg. 4. Acute Hypoxic Respiratory Failure secondary to fluid overload. CXR - atelectasis, basal fluid Will give another dose IV lasix 40mg and wean off O2. 5. LE Edema, likely venous stasis LE Duplex negative for DVT. Cardiomegaly and possible congestion on CXR. BNP 634 Echo - impaired LV relaxation. Receiving Lasix IV 40mg. 6. 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 7. Hypothyroidism - Mild elevation in TSH 4.42 Further up-titration of Synthroid as out-patient by PCP 8. HTN - continue Losartan., Atenolol 9. HLD - Statin held due to elevated CPK. 10. Hypomagnesemia - repleted. 11. Elevated QTc at 521. Cardiology consulted for elevated QTc - recommend no further work-up/intervention. RV Strain on Echo - will send DDIMER. If positive, will order CTA. DVT Px - Lovenox SQ
--- NOTE | 2019-09-17 14:45 | PN ---
Physical Exam: SUBJECTIVE: Patient seen and examined at bedside. Patient had TSLO brace taken off for comfort. Last night de-saturated on NC 2 L. Patient placed on non-rebreather. Patient currently comfortable in a sling with mitten restraints. Patient still waxes and wanes in dementia. Currently patient is AAOx3, able to identify year and location. Patient denies pain or discomfort. Patient will proceed with MRI and will receive Ativan to avoid combativeness with MRI technitians. OBJECTIVE: Vital Signs Period Temp Pulse Resp BP Sys/Mazariegos Pulse Ox Last 24 Hr 97.6 F-99.4 F 67-90 20-24 101-157/62-88 95-96 GENERAL: The patient is awake, alert, and fully oriented, in no acute distress. HEAD: Normal with no signs of trauma. EYES: PERRL, extraocular movements intact, sclera anicteric, conjunctiva clear. No ptosis. ENT: Ears normal, nares patent, oropharynx clear without exudates, moist mucous membranes. NECK: Trachea midline, full range of motion, supple. LUNGS: Breath sounds equal, clear to auscultation bilaterally, no wheezes, no crackles, no accessory muscle use. HEART: Regular rate and rhythm, S1, S2 without murmur, rub or gallop. ABDOMEN: Soft, nontender, nondistended, normoactive bowel sounds, no guarding, no rebound, no hepatosplenomegaly, no masses. EXTREMITIES: Large area of ecchymosis on right anterior aspect of glenohumeral joint PSYCH: Normal mood, normal affect. SKIN: Warm, dry, normal turgor, no rashes or lesions noted Laboratory Results - last 24 hr 09/17/19 09/17/19 06:15 06:15 WBC 9.5 RBC 3.61 Hgb 10.4 L Hct 32.6 MCV 90.2 MCH 28.9 MCHC 32.0 RDW 15.5 Plt Count 237 MPV 8.1 Absolute Neuts (auto) 7.3 Neutrophils % 76.9 Lymphocytes % 7.5 L Monocytes % 13.5 H Eosinophils % 1.4 D Basophils % 0.7 Nucleated RBC % 0 Sodium 145 Potassium 3.9 Chloride 112 H Carbon Dioxide 26 Anion Gap 7 L BUN 35.4 H Creatinine 1.0 Est GFR (CKD-EPI)AfAm 59.08 Est GFR (CKD-EPI)NonAf 50.97 Random Glucose 120 H Calcium 8.5 Phosphorus 3.2 Magnesium 2.3 Total Bilirubin 1.4 H AST 42 H ALT 25 Alkaline Phosphatase 57 Creatine Kinase 1018 H Creatine Kinase Index 0.5 CK-MB (CK-2) 5.6 H Troponin I < 0.02 Total Protein 5.5 L Albumin 2.5 L Active Medications Generic Name Dose Route Start Last Admin Trade Name Freq PRN Reason Stop Dose Admin Acetaminophen 650 mg 09/15/19 02:33 09/16/19 15:43 Tylenol - PO 650 mg Q4H PRN Administration PAIN LEVEL 1-3 Atenolol 50 mg 09/15/19 10:00 09/17/19 09:19 Tenormin - PO 50 mg DAILY SAAD Administration Atorvastatin Calcium 10 mg 09/15/19 17:30 09/16/19 21:52 Lipitor - PO 10 mg HS SAAD Administration Brimonidine Tartrate 1 drop 09/16/19 10:00 09/17/19 09:19 Alphagan 0.15% - OD 1 drop BID SAAD Administration Dorzolamide HCl 1 drop 09/16/19 10:00 09/17/19 09:19 Trusopt 2% OU 1 drop BID SAAD Administration Enoxaparin Sodium 40 mg 09/15/19 10:00 09/17/19 09:19 Lovenox - SQ 40 mg DAILY SAAD Administration Fenofibric Acid 135 mg 09/15/19 17:30 09/17/19 09:19 Trilipix - PO 135 mg DAILY SAAD Administration Levothyroxine Sodium 100 mcg 09/15/19 07:00 09/17/19 06:39 Synthroid - PO 100 mcg ACBK SAAD Administration Lorazepam 1 mg 09/17/19 12:58 Ativan - PO DAILY PRN ANXIETY Losartan Potassium 50 mg 09/15/19 10:00 09/17/19 09:19 Cozaar - PO 50 mg DAILY SAAD Administration Morphine Sulfate 2 mg 09/15/19 14:39 09/16/19 21:52 Morphine Sulfate IVPUSH 2 mg Q4H PRN Administration PAIN LEVEL 6-10 Potassium Chloride 20 meq 09/15/19 10:00 09/17/19 09:19 K-Dur - PO 20 meq DAILY SAAD Administration Senna/Docusate Sodium 2 tablet 09/15/19 22:00 09/16/19 21:52 Pericolace - PO 2 tablet HS SAAD Administration ASSESSMENT/PLAN: Lindsey is an 84F w h/o of HTN/HLD, obesity, prolonged QTc on EKG who reports to the ED for a dislocated shoulder and a fracture of T11 vertibrae without compromise to the spinal cord or nerve roots. #T11 vertebral fracture - Neurosurgery recommended MRI work up - Dr. cobb on case - does not suspect spinal cord involvement - will confirm via MRI - pain controlled with morphine and tylenol - CT scan shows T11 posterior/superior vertebral fx with mid height depression; no significant bony retropulsion; widening of T10-T11 disc space anteriorly > posteriorly; posterior vertebral element intact - Acute T11 fax with hyperextension/distraction injury - Patient will remain in a TSLO brace until instructed otherwise for spinal cord and vertebral stabilization - patient will receive 1 mg PO ativan 30 min prior to MRI to avoid agitation #Anterior shoulder dislocation s/p reduction - Ortho seen - unable to surgically intervene - patient must be intubated and undergo full paralysis for surgery - deemed a big risk and potentialy not a candidate for muscle and shoulder repair - patient placed in a right arm sling #CPK elevation - patient started IV hydration - d/c fluids - Pt started on lasix 40mg IV #HTN - continue home medications -Losartan and atenolol - will monitor BP #HDL - CPK levels - statins held #ECG abnormalities - QTc rate is 521 ms - monitor for medications that prolong QTc - consultation for cardiology says no further intervention required - D-Dimer order sent ATTENDING PHYSICIAN STATEMENT I saw and evaluated the patient. I reviewed the resident's note and discussed the case with the resident. I agree with the resident's findings and plan as documented. SUBJECTIVE: OBJECTIVE: ASSESSMENT AND PLAN:
[2019-09-17] MEDS ORDERED: ENOXAPARIN NA (PORCINE) 60 MG/0.6 ML DISP.SYRIN SQ ONE (17:42)
[2019-09-17] MEDS ORDERED: ENOXAPARIN NA (PORCINE) 80 MG/0.8 ML DISP.SYRIN SQ ONE (17:42)
[2019-09-17] MEDS: MORPHINE SULFATE 2 MG/ML VIAL IVPUSH PRN ×2 (17:55→21:37)
[2019-09-17] MEDS: ATORVASTATIN CA 10 MG TABLET (FP) PO SCH (21:53)
[2019-09-17] MEDS: SENNOSIDES/DOCUSATE COMBO (SENNA PLUS) TABLET (UD) PO SCH (21:54)
[2019-09-18] MEDS: MORPHINE SULFATE 2 MG/ML VIAL IVPUSH PRN ×2 (01:52→10:46)
[2019-09-18] MEDS: LEVOTHYROXINE NA 100 MCG TABLET (FP) PO SCH (06:09)
[2019-09-18 08:16] LABS: HEMATOCRIT 33.3 % (32.4-45.2); HEMOGLOBIN 10.8 GM/dL (10.7-15.3); MCH 29.8 pg (25.7-33.7); MCHC 32.4 g/dl (32.0-36.0); MEAN CELL VOLUME 92.1 fl (80-96); MEAN PLT VOLUME 8.1 fl (7.5-11.1); PLATELET COUNT 283 K/MM3 (134-434); RBC 3.62 M/mm3 (3.60-5.2); RDW 15.9 % (11.6-15.6); WHITE BLOOD COUNT 8.5 K/mm3 (4.0-10.0)
[2019-09-18 08:43] LABS: BLOOD UREA NITROGEN 38.5 mg/dL (7-18); CALCIUM 8.3 mg/dL (8.5-10.1); CREATININE 0.9 mg/dL (0.55-1.3); MAGNESIUM 2.4 mg/dL (1.8-2.4); PHOSPHOROUS 3.1 mg/dL (2.5-4.9); POTASSIUM 3.9 mmol/L (3.5-5.1)
--- NOTE | 2019-09-18 09:18 | PN ---
Progress Note (short form) - Note Progress Note: NEUROSURGERY In telemetry Being cleaned R shoulder pain less Denies significant back pain Overnight incidence noted PE: Tmax 99.3, AF, VSS; O2 sat 94-96% General- stable and unchanged less anxious CN- intact; Motor- 4+ B UE and distal B LE; 4/5 prox B LE pain limited; Sensation- intact LT B LE/UE; DTR- hyporeflexic Covid 19- negative T spine CT- T11 posterior/superior vertebral fx with mid height depression; no significant bony retropulsion; widening of T10-11 disc space anteriorly > posteriorly; posterior vertebral element intact Acute T11 fx with hyperextension/distraction injury TLSO brace whenever out of bed (OOB) x 3 months MRI to assess disc, ligament, and soft tissue pathology, though pt size limits possibility Upright T spine x-rays AP/lat in 2 weeks in brace to assess T10-11 alignment Spine surgery should ideally be avoided given her age, medical conditions, obesity and osteoporosis Ortho f/u for R shoulder dislocation PT for strengthening and mobilization Rehab
[2019-09-18] MEDS: ATENOLOL 50 MG TABLET (FP) PO SCH (10:16)
[2019-09-18] MEDS: ENOXAPARIN NA (PORCINE) 40 MG/0.4 ML DISP.SYRIN SQ SCH (10:16)
[2019-09-18] MEDS: FENOFIBRIC ACID 135 MG CAP PO SCH (10:16)
[2019-09-18] MEDS: LOSARTAN POTASSIUM 50 MG TABLET (FP) PO SCH (10:16)
[2019-09-18] MEDS: POTASSIUM CHLORIDE TABS 20 MEQ TABLET.ER (FP) PO SCH (10:16)
[2019-09-18] MEDS: BRIMONIDINE TARTRATE 0.15% OPHTHALMIC 5 ML BOTTLE OD SCH ×2 (10:20→23:04)
[2019-09-18] MEDS: DORZOLAMIDE 2% HCL OPHTHALMIC SOLUTION 10 ML BOTTLE OU SCH ×2 (10:20→23:03)
[2019-09-18] MEDS ORDERED: oxyCODONE HCL 5 MG TABLET PO ONE (10:58)
[2019-09-18] MEDS ORDERED: FUROSEMIDE 40 MG/4 ML INJECTABLE VIAL IVPUSH ONE (11:08)
[2019-09-18] MEDS ORDERED: NYSTATIN 100,000 UNIT/GM TOPICAL CREAM 15 GM TUBE TP SCH (11:15)
[2019-09-18] MEDS: NYSTATIN POWDER 100,000 UNITS/GM - 15 GM TOPICAL POWDER TP SCH (13:41)
--- NOTE | 2019-09-18 14:13 | PN ---
Teaching Attending Note Name of Resident: Александр Johnson ATTENDING PHYSICIAN STATEMENT I saw and evaluated the patient. I reviewed the resident's note and discussed the case with the resident. I agree with the resident's findings and plan as documented. SUBJECTIVE: Feeling well. Denies shoulder or back pain currently. No further SOB. OBJECTIVE: Afebrile, Hemodynamically Stable. AAO x 3. SpO2 98% on 3L. Cooperative and following commands. Last Vital Signs Temp Pulse Resp BP Pulse Ox 97.7 F 74 20 127/69 98 % on 3L 09/18/19 10:00 09/18/19 10:00 09/18/19 10:09/18/19 10:09/18/19 09:00 Heart - S1, S2, RRR Lungs - clear to auscultation, reduced at bases Abdomen - High BMI. Soft, non-tender. Bowel Sounds normal. Extremities - Edema + Neuro - AAO x 3. Decreased Power LEs. No focal deficits. Laboratory Results - last 24 hr 09/17/19 09/18/19 09/18/19 16:57 06:23 06:23 WBC 8.5 RBC 3.62 Hgb 10.8 Hct 33.3 MCV 92.1 MCH 29.8 MCHC 32.4 RDW 15.9 H Plt Count 283 MPV 8.1 D-Dimer 3835 H Sodium 144 Potassium 3.9 Chloride 108 H Carbon Dioxide 32 Anion Gap 4 L BUN 38.5 H Creatinine 0.9 Est GFR (CKD-EPI)AfAm 67.10 Est GFR (CKD-EPI)NonAf 57.90 Random Glucose 102 Calcium 8.3 L Phosphorus 3.1 Magnesium 2.4 Current Medications Generic Name Dose Route Start Last Admin Trade Name Freq PRN Reason Stop Dose Admin Acetaminophen 650 mg 09/15/19 02:33 09/16/19 15:43 Tylenol - PO 650 mg Q4H PRN Administration PAIN LEVEL 1-3 Atenolol 50 mg 09/15/19 10:00 09/18/19 10:16 Tenormin - PO 50 mg DAILY SAAD Administration Atorvastatin Calcium 10 mg 09/15/19 17:30 09/17/19 21:53 Lipitor - PO 10 mg HS SAAD Administration Brimonidine Tartrate 1 drop 09/16/19 10:00 09/18/19 10:20 Alphagan 0.15% - OD 1 drop BID SAAD Administration Dorzolamide HCl 1 drop 09/16/19 10:00 09/18/19 10:20 Trusopt 2% OU 1 drop BID SAAD Administration Enoxaparin Sodium 40 mg 09/18/19 10:00 09/18/19 10:16 Lovenox - SQ 40 mg DAILY SAAD Administration Fenofibric Acid 135 mg 09/15/19 17:30 09/18/19 10:16 Trilipix - PO 135 mg DAILY SAAD Administration Levothyroxine Sodium 100 mcg 09/15/19 07:00 09/18/19 06:09 Synthroid - PO 100 mcg ACBK SAAD Administration Lorazepam 1 mg 09/17/19 12:58 09/17/19 18:28 Ativan - PO 1 mg DAILY PRN Administration ANXIETY Losartan Potassium 50 mg 09/15/19 10:00 09/18/19 10:16 Cozaar - PO 50 mg DAILY SAAD Administration Nystatin 1 applic 09/18/19 12:15 09/18/19 13:41 Nystop Powder - TP 1 applic DAILY SAAD Administration Potassium Chloride 20 meq 09/15/19 10:00 09/18/19 10:16 K-Dur - PO 20 meq DAILY SAAD Administration Senna/Docusate Sodium 2 tablet 09/15/19 22:00 09/17/19 21:54 Pericolace - PO 2 tablet HS SAAD Administration Home Medications Medication Instructions Recorded Atenolol [Tenormin -] 50 mg PO DAILY #0 tablet 05/10/11 Atorvastatin Ca [Lipitor] 10 mg PO DAILY 06/10/13 Fenofibrate 160 mg PO DAILY 06/10/13 Levothyroxine [Synthroid -] 100 mcg PO DAILY 06/10/13 Losartan Potassium 50 mg PO DAILY 06/10/13 Potassium Chloride 20 meq PO DAILY 06/10/13 Brimonidine Tartrate [Alphagan P] 10 ml OP BID 09/15/19 Brinzolamide [Azopt 10 ml OP BID 09/15/19 (Non-Formulary)] ASSESSMENT AND PLAN: 84 year old female with history of HTN, HLD, Hypothyroidism, presents with LE weakness, R shoulder pain after being carried up stairs in a bed-sheet due to poor mobility. 1. Right Anterior Shoulder Dislocation Ortho consulted and due to time elapsed from injury and concomitant spinal injury, recommendation for no surgical intervention/manipulation currently. Sling. Ortho out-patient follow up. 2. T11 Spinal fracture, unstable Neurosurgery evaluated and recommends TLSO Brace, MRI, and PT/Rehab. Multiple attempts at MRI - unable to tolerate study thusfar. Awaiting repeat MRI, will require 1mg PO Ativan prior to imaging study. 3. Elevated CPK, possibly secondary to Lipitor IV hydration stopped due to fluid overload. Will monitor CPK. 4. Acute Hypoxic Respiratory Failure secondary to fluid overload, on 3L O2 via NC. CXR - atelectasis, bibasal fluid. Small Bibasal effusions with compressive atelectasis on CT Chest. Will give another dose IV lasix 40mg and attempt to wean off O2. 5. LE Edema, likely venous stasis LE Duplex negative for DVT. Cardiomegaly and possible congestion on CXR. BNP 634 Echo - impaired LV relaxation. Receiving Lasix IV 40mg. 6. 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 7. Hypothyroidism - Mild elevation in TSH 4.42 Further up-titration of Synthroid as out-patient by PCP 8. HTN - continue Losartan, Atenolol. 9. HLD - Statin held due to elevated CPK. 10. Hypomagnesemia - repleted. 11. Elevated QTc at 521. Cardiology consulted for elevated QTc - recommend no further work-up/intervention. RV Strain on Echo - CTA negative for PE. 12. Likely underlying Dementia with waxing/waning mental status. Now AAO x 3. Cooperative and following commands. DVT Px - Lovenox SQ
--- NOTE | 2019-09-18 15:54 | PN ---
Physical Exam: SUBJECTIVE: Patient seen and examined patient was feeling well. The patient currently denies any current shoulder and back pain. Patient does not complain much and she is very pleasant. No further SOB. OBJECTIVE: Vital Signs Period Temp Pulse Resp BP Sys/Mazariegos Pulse Ox Last 24 Hr 97.7 F-99.3 F 70-81 20-20 97-129/51-79 91-98 GENERAL: The patient is awake, alert, and fully oriented, in no acute distress. HEAD: Normal with no signs of trauma. EYES: PERRL, extraocular movements intact, sclera anicteric, conjunctiva clear. No ptosis. ENT: Ears normal, nares patent, oropharynx clear without exudates, moist mucous membranes. NECK: Trachea midline, full range of motion, supple. LUNGS: Patients lungs are clear to auscultation bilaterally HEART: Regular rate and rhythm, S1, S2 without murmur, rub or gallop. ABDOMEN: Soft, nontender, nondistended, normoactive bowel sounds, no guarding, no rebound, no hepatosplenomegaly, no masses. EXTREMITIES: 2+ pulses, warm, well-perfused, no edema. NEUROLOGICAL: Cranial nerves II through XII grossly intact. Normal speech, gait not observed. PSYCH: Normal mood, normal affect. SKIN: Warm, dry, normal turgor, no rashes or lesions noted Laboratory Results - last 24 hr 09/17/19 09/18/19 09/18/19 16:57 06:23 06:23 WBC 8.5 RBC 3.62 Hgb 10.8 Hct 33.3 MCV 92.1 MCH 29.8 MCHC 32.4 RDW 15.9 H Plt Count 283 MPV 8.1 D-Dimer 3835 H Sodium 144 Potassium 3.9 Chloride 108 H Carbon Dioxide 32 Anion Gap 4 L BUN 38.5 H Creatinine 0.9 Est GFR (CKD-EPI)AfAm 67.10 Est GFR (CKD-EPI)NonAf 57.90 Random Glucose 102 Calcium 8.3 L Phosphorus 3.1 Magnesium 2.4 Active Medications Generic Name Dose Route Start Last Admin Trade Name Freq PRN Reason Stop Dose Admin Acetaminophen 650 mg 09/15/19 02:33 09/16/19 15:43 Tylenol - PO 650 mg Q4H PRN Administration PAIN LEVEL 1-3 Atenolol 50 mg 09/15/19 10:00 09/18/19 10:16 Tenormin - PO 50 mg DAILY SAAD Administration Atorvastatin Calcium 10 mg 09/15/19 17:30 09/17/19 21:53 Lipitor - PO 10 mg HS SAAD Administration Brimonidine Tartrate 1 drop 09/16/19 10:00 09/18/19 10:20 Alphagan 0.15% - OD 1 drop BID SAAD Administration Dorzolamide HCl 1 drop 09/16/19 10:00 09/18/19 10:20 Trusopt 2% OU 1 drop BID SAAD Administration Enoxaparin Sodium 40 mg 09/18/19 10:00 09/18/19 10:16 Lovenox - SQ 40 mg DAILY SAAD Administration Fenofibric Acid 135 mg 09/15/19 17:30 09/18/19 10:16 Trilipix - PO 135 mg DAILY SAAD Administration Levothyroxine Sodium 100 mcg 09/15/19 07:00 09/18/19 06:09 Synthroid - PO 100 mcg ACBK SAAD Administration Lorazepam 1 mg 09/17/19 12:58 09/17/19 18:28 Ativan - PO 1 mg DAILY PRN Administration ANXIETY Losartan Potassium 50 mg 09/15/19 10:00 09/18/19 10:16 Cozaar - PO 50 mg DAILY SAAD Administration Nystatin 1 applic 09/18/19 12:15 09/18/19 13:41 Nystop Powder - TP 1 applic DAILY SAAD Administration Potassium Chloride 20 meq 09/15/19 10:00 09/18/19 10:16 K-Dur - PO 20 meq DAILY SAAD Administration Senna/Docusate Sodium 2 tablet 09/15/19 22:00 09/17/19 21:54 Pericolace - PO 2 tablet HS SAAD Administration ASSESSMENT/PLAN: Lindsey is an 84F with a h/o Hypothyroidism, HTN/HLD, presenting to the hospital with leg weakness, and right shoulder pain #T11 vertebral fracture - Neurosurgery recommended MRI work up - Dr. cobb on case - does not suspect spinal cord involvement - will confirm via MRI - pain controlled with morphine and tylenol - CT scan shows T11 posterior/superior vertebral fx with mid height depression; no significant bony retropulsion; widening of T10-T11 disc space anteriorly > posteriorly; posterior vertebral element intact - Acute T11 fax with hyperextension/distraction injury - Patient will remain in a TSLO brace until instructed otherwise for spinal cord and vertebral stabilization - patient will receive 1 mg PO ativan 30 min prior to MRI to avoid agitation #Acute Hypoxic Respiratory Failure - Likely secondary to fluid overload - patient placed on 3L of NC #Anterior shoulder dislocation s/p reduction - Ortho seen - unable to surgically intervene - patient must be intubated and undergo full paralysis for surgery - deemed a big risk and potentialy not a candidate for muscle and shoulder repair - patient placed in a right arm sling #CPK elevation - Fluids D/c'd - monitor CPK #HTN - continue home medications -Losartan and atenolol - will monitor BP #HDL - CPK levels - statins held #ECG abnormalities - QTc rate is 521 ms - monitor for medications that prolong QTc - RV Strain on Echo - CTA negative for PE - D-Dimer order sent Visit type - Emergency Visit Emergency Visit: Yes ED Registration Date: 09/14/19 Care time: The patient presented to the Emergency Department on the above date and was hospitalized for further evaluation of their emergent condition. - New Patient This patient is new to me today: No - Critical Care Critical Care patient: No - Discharge Referral Referred to [facility] No ATTENDING PHYSICIAN STATEMENT I saw and evaluated the patient. I reviewed the resident's note and discussed the case with the resident. I agree with the resident's findings and plan as documented. SUBJECTIVE: OBJECTIVE: ASSESSMENT AND PLAN:
[2019-09-18] MEDS: ACETAMINOPHEN 325 MG TABLET (FP) PO PRN ×2 (17:20→22:22)
[2019-09-18] MEDS: ATORVASTATIN CA 10 MG TABLET (FP) PO SCH (22:21)
[2019-09-18] MEDS: oxyCODONE HCL 5 MG TABLET PO PRN (22:21)
[2019-09-18] MEDS: SENNOSIDES/DOCUSATE COMBO (SENNA PLUS) TABLET (UD) PO SCH (22:22)
[2019-09-18] MEDS ORDERED: PT OWN MED DRAWER 7, Y5N ONE (22:28)
[2019-09-19] MEDS: LEVOTHYROXINE NA 100 MCG TABLET (FP) PO SCH (06:26)
[2019-09-19 06:59] LABS: HEMATOCRIT 32.5 % (32.4-45.2); HEMOGLOBIN 10.5 GM/dL (10.7-15.3); MCH 29.5 pg (25.7-33.7); MCHC 32.4 g/dl (32.0-36.0); MEAN CELL VOLUME 90.9 fl (80-96); MEAN PLT VOLUME 7.8 fl (7.5-11.1); PLATELET COUNT 277 K/MM3 (134-434); RBC 3.58 M/mm3 (3.60-5.2); RDW 15.8 % (11.6-15.6); WHITE BLOOD COUNT 8.2 K/mm3 (4.0-10.0)
[2019-09-19 07:24] LABS: BLOOD UREA NITROGEN 45.9 mg/dL (7-18); CALCIUM 8.5 mg/dL (8.5-10.1); CREATININE 1.4 mg/dL (0.55-1.3); MAGNESIUM 2.4 mg/dL (1.8-2.4); PHOSPHOROUS 4.1 mg/dL (2.5-4.9); POTASSIUM 4.7 mmol/L (3.5-5.1)
--- NOTE | 2019-09-19 09:42 | PN ---
Progress Note (short form) - Note Progress Note: NEUROSURGERY In telemetry Denies significant back pain Resting comfortably in bed PE: T 98.3, AF, VSS; O2 sat 95% on 4 L General- stable and unchanged CN- intact; Motor- 4+ B UE and distal B LE; 4/5 prox B LE pain limited; Sensation- intact LT B LE/UE; DTR- hyporeflexic Covid 19- negative T spine CT- T11 posterior/superior vertebral fx with mid height depression; no significant bony retropulsion; widening of T10-11 disc space anteriorly > posteriorly; posterior vertebral element intact CTA- no PE; small pleural effusion, T11 fx and T10-11 disc space distraction as noted previously Acute T11 fx with hyperextension/distraction injury TLSO brace whenever out of bed (OOB) x 3 months MRI limited by pt physical attributes Upright T spine x-rays AP/lat in 2 weeks in brace to assess T10-11 alignment PT for strengthening and mobilization Rehab Will sign off, reconsult prn
[2019-09-19] MEDS: ATENOLOL 50 MG TABLET (FP) PO SCH (10:05)
[2019-09-19] MEDS: NYSTATIN POWDER 100,000 UNITS/GM - 15 GM TOPICAL POWDER TP SCH (10:05)
[2019-09-19] MEDS: FENOFIBRIC ACID 135 MG CAP PO SCH (10:05)
[2019-09-19] MEDS: LOSARTAN POTASSIUM 50 MG TABLET (FP) PO SCH (10:05)
[2019-09-19] MEDS: ENOXAPARIN NA (PORCINE) 40 MG/0.4 ML DISP.SYRIN SQ SCH (10:05)
[2019-09-19] MEDS: DORZOLAMIDE 2% HCL OPHTHALMIC SOLUTION 10 ML BOTTLE OU SCH ×2 (10:06→21:18)
[2019-09-19] MEDS: BRIMONIDINE TARTRATE 0.15% OPHTHALMIC 5 ML BOTTLE OD SCH ×2 (10:06→21:18)
[2019-09-19] MEDS: POTASSIUM CHLORIDE TABS 20 MEQ TABLET.ER (FP) PO SCH (10:07)
[2019-09-19] MEDS ORDERED: FUROSEMIDE 40 MG/4 ML INJECTABLE VIAL IVPUSH ONE (11:18)
[2019-09-19] MEDS: DOCUSATE SODIUM 100 MG CAPSULE (FP) PO SCH ×2 (11:29→21:16)
[2019-09-19] MEDS: oxyCODONE HCL 5 MG TABLET PO PRN ×2 (14:45→21:16)
[2019-09-19] MEDS: ACETAMINOPHEN 325 MG TABLET (FP) PO PRN (14:46)
--- NOTE | 2019-09-19 16:19 | PN ---
Teaching Attending Note Name of Resident: Abhijeet Tejeda ATTENDING PHYSICIAN STATEMENT I saw and evaluated the patient. I reviewed the resident's note and discussed the case with the resident. I agree with the resident's findings and plan as documented. SUBJECTIVE: Feeling well. Denies shoulder or back pain currently. No further SOB. OBJECTIVE: Afebrile, Hemodynamically Stable. AAO x 3. SpO2 95% on 2L, desaturating to 85% on RA. Cooperative and following commands. Last Vital Signs Temp Pulse Resp BP Pulse Ox 98.1 F 77 16 93/53 L 93 L on 2L via NC 09/19/19 14:00 09/19/19 14:00 09/19/19 14:09/19/19 14:09/19/19 14:00 Heart - S1, S2, RRR Lungs - air entry reduced at bases Abdomen - High BMI. Soft, non-tender. Bowel Sounds normal. Extremities - Edema +. Varicose Veins. Neuro - AAO x 3. Decreased Power LEs. No focal deficits. Laboratory Results - last 24 hr 09/19/19 09/19/19 05:56 05:56 WBC 8.2 RBC 3.58 L Hgb 10.5 L Hct 32.5 MCV 90.9 MCH 29.5 MCHC 32.4 RDW 15.8 H Plt Count 277 MPV 7.8 Sodium 142 Potassium 4.7 Chloride 106 Carbon Dioxide 28 Anion Gap 8 BUN 45.9 H Creatinine 1.4 H Est GFR (CKD-EPI)AfAm 39.33 Est GFR (CKD-EPI)NonAf 33.94 Random Glucose 113 H Calcium 8.5 Phosphorus 4.1 Magnesium 2.4 Current Medications Generic Name Dose Route Start Last Admin Trade Name Freq PRN Reason Stop Dose Admin Acetaminophen 650 mg 09/15/19 02:33 09/19/19 14:46 Tylenol - PO 650 mg Q4H PRN Administration PAIN LEVEL 1-3 Atenolol 50 mg 09/15/19 10:00 09/19/19 10:05 Tenormin - PO Not Given DAILY SAAD Atorvastatin Calcium 10 mg 09/15/19 17:30 09/18/19 22:21 Lipitor - PO 10 mg HS SAAD Administration Brimonidine Tartrate 1 drop 09/16/19 10:00 09/19/19 10:06 Alphagan 0.15% - OD 1 drop BID SAAD Administration Docusate Sodium 100 mg 09/19/19 11:30 09/19/19 11:29 Colace - PO 100 mg BID SAAD Administration Dorzolamide HCl 1 drop 09/16/19 10:00 09/19/19 10:06 Trusopt 2% OU 1 drop BID SAAD Administration Enoxaparin Sodium 40 mg 09/18/19 10:00 09/19/19 10:05 Lovenox - SQ 40 mg DAILY SAAD Administration Fenofibric Acid 135 mg 09/15/19 17:30 09/19/19 10:05 Trilipix - PO 135 mg DAILY SAAD Administration Levothyroxine Sodium 100 mcg 09/15/19 07:00 09/19/19 06:26 Synthroid - PO 100 mcg ACBK SAAD Administration Lorazepam 1 mg 09/17/19 12:58 09/17/19 18:28 Ativan - PO 1 mg DAILY PRN Administration ANXIETY Losartan Potassium 50 mg 09/15/19 10:00 09/19/19 10:05 Cozaar - PO Not Given DAILY [facility] Nystatin 1 applic 09/18/19 12:15 09/19/19 10:05 Nystop Powder - TP 1 applic DAILY [facility] Administration Oxycodone HCl 5 mg 09/18/19 17:20 09/19/19 14:45 Roxicodone - PO 5 mg Q4H PRN Administration PAIN LEVEL 6-10 Potassium Chloride 20 meq 09/15/19 10:00 09/19/19 10:07 K-Dur - PO 20 meq DAILY SAAD Administration Senna 2 tab 09/19/19 22:00 Senna - PO [facility] Home Medications Medication Instructions Recorded Atenolol [Tenormin -] 50 mg PO DAILY #0 tablet 05/10/11 Atorvastatin Ca [Lipitor] 10 mg PO DAILY 06/10/13 Fenofibrate 160 mg PO DAILY 06/10/13 Levothyroxine [Synthroid -] 100 mcg PO DAILY 06/10/13 Losartan Potassium 50 mg PO DAILY 06/10/13 Potassium Chloride 20 meq PO DAILY 06/10/13 Brimonidine Tartrate [Alphagan P] 10 ml OP BID 09/15/19 Brinzolamide [Azopt 10 ml OP BID 09/15/19 (Non-Formulary)] ASSESSMENT AND PLAN: 84 year old female with history of HTN, HLD, Hypothyroidism, presents with LE weakness, R shoulder pain after being carried up stairs in a bed-sheet due to poor mobility. 1. Right Anterior Shoulder Dislocation Ortho consulted and due to time elapsed from injury and concomitant spinal injury, recommendation for no surgical intervention/manipulation currently. Sling. Ortho out-patient follow up. 2. Acute T11 Spinal fracture, unstable with hyperextension/distraction injury Neurosurgery evaluated and recommends TLSO Brace, MRI, and PT/Rehab. Multiple attempts at MRI - unable to tolerate study/fit in scanner. Upright T spine x-rays AP/lat in 2 weeks in brace to assess T10-11 alignment PT for strengthening and mobilization 3. Elevated CPK, possibly secondary to Lipitor IV hydration stopped due to fluid overload. Will monitor CPK. 4. Acute Hypoxic Respiratory Failure secondary to fluid overload/diastolic CHF, on 2-3L O2 via NC. Echo - impaired LV relaxation. CXR - atelectasis, bibasal fluid. Small bibasal effusions with compressive atelectasis on CT Chest. Will give another dose IV Lasix 20mg and attempt to wean off O2. Cardiology consulted - will recall. 5. LE Edema, likely venous stasis LE Duplex negative for DVT. Cardiomegaly and possible congestion on CXR. BNP 634 Echo - impaired LV relaxation. Receiving Lasix IV 6. MARIA ISABEL - elevation in BUN/Creat likely sec to IV Lasix. BUN 45.9/Creat 1.4. Will monitor renal function in response to diuresis. 7. 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 8. Hypothyroidism - Mild elevation in TSH 4.42 Further up-titration of Synthroid as out-patient by PCP 9. HTN - continue Losartan, Atenolol. 10. HLD - Statin held due to elevated CPK. 11. Hypomagnesemia - repleted. 12. Elevated QTc at 521. Cardiology consulted for elevated QTc - recommend no further work-up/intervention. RV Strain on Echo - CTA negative for PE. 13. Likely underlying Dementia with waxing/waning mental status. Now AAO x 3. Cooperative and following commands. DVT Px - Lovenox SQ
[2019-09-19] MEDS: SENNOSIDES 8.6MG TABLET (FP) PO SCH (21:16)
[2019-09-19] MEDS: ATORVASTATIN CA 10 MG TABLET (FP) PO SCH (21:16)
[2019-09-20] MEDS: LEVOTHYROXINE NA 100 MCG TABLET (FP) PO SCH (06:11)
[2019-09-20] MEDS: DOCUSATE SODIUM 100 MG CAPSULE (FP) PO SCH ×2 (09:32→21:05)
[2019-09-20] MEDS: FENOFIBRIC ACID 135 MG CAP PO SCH (09:32)
[2019-09-20] MEDS: ATENOLOL 50 MG TABLET (FP) PO SCH (09:32)
[2019-09-20] MEDS: ENOXAPARIN NA (PORCINE) 40 MG/0.4 ML DISP.SYRIN SQ SCH (09:32)
[2019-09-20] MEDS: POTASSIUM CHLORIDE TABS 20 MEQ TABLET.ER (FP) PO SCH (09:32)
[2019-09-20] MEDS: LOSARTAN POTASSIUM 50 MG TABLET (FP) PO SCH (09:32)
[2019-09-20] MEDS: BRIMONIDINE TARTRATE 0.15% OPHTHALMIC 5 ML BOTTLE OD SCH ×2 (09:33→21:07)
[2019-09-20] MEDS: NYSTATIN POWDER 100,000 UNITS/GM - 15 GM TOPICAL POWDER TP SCH (09:33)
[2019-09-20] MEDS: DORZOLAMIDE 2% HCL OPHTHALMIC SOLUTION 10 ML BOTTLE OU SCH ×2 (09:34→21:07)
--- NOTE | 2019-09-20 09:57 | PN ---
Progress Note (short form) - Note Progress Note: NEUROSURGERY In telemetry Denies any back pain Wants to go to bathroom PE: T 98.3, AF, VSS; O2 sat 95% on 4 L General- stable and unchanged CN- intact; Motor- 4+ B UE and distal B LE; 4/5 prox B LE pain limited; Sensation- intact LT B LE/UE; DTR- hyporeflexic Covid 19- negative CTA- no PE; small pleural effusion, T11 fx and T10-11 disc space distraction as noted previously Acute T11 fx with hyperextension/distraction injury TLSO brace whenever out of bed (OOB) x 3 months Upright T spine x-rays AP/lat in 2 weeks in brace to assess T10-11 alignment PT for strengthening and mobilization Rehab Stable painwise, will sign off
--- NOTE | 2019-09-20 12:06 | PN ---
Progress Note, Physician Chief Complaint: CARDIOLOGY FU No dyspnea Noted hypoxia 88% RA. With 3 L NC O2 sat >90%. Telem NSR no arrhythmia History of Present Illness: 84-year-old obese female, with a history of hypertension, hyperlipidemia, hypothyroidism, admitted 09/15/2019 with right shoulder and back pains. Noted to have a dislocated right shoulder and collapsed vertebrae. The patient was evaluated by orthopedics who opted on conservative care at this point. ECG showed sinus rhythm with first-degree AV block and prolonged QT interval. No acute ST-T changes. CPKs are elevated with normal troponins. Echocardiogram 09/15/2019 was a technically difficult study revealing normal left ventricular ejection fraction, dilated and hypokinetic right ventricle with mild aortic mitral and tricuspid regurgitation. CT chest no PE, small bilateral pleural effusions. - Current Medication List Current Medications: Active Medications Acetaminophen (Tylenol -) 650 mg PO Q4H PRN PRN Reason: PAIN LEVEL 1-3 Last Admin: 09/19/19 14:46 Dose: 650 mg Documented by: Atenolol (Tenormin -) 50 mg PO DAILY [facility] Last Admin: 09/20/19 09:32 Dose: 50 mg Documented by: Atorvastatin Calcium (Lipitor -) 10 mg PO HS [facility] Last Admin: 09/19/19 21:16 Dose: 10 mg Documented by: Brimonidine Tartrate (Alphagan 0.15% -) 1 drop OD BID [facility] Last Admin: 09/20/19 09:33 Dose: 1 drop Documented by: Docusate Sodium (Colace -) 100 mg PO BID [facility] Last Admin: 09/20/19 09:32 Dose: 100 mg Documented by: Dorzolamide HCl (Trusopt 2%) 1 drop OU BID [facility] Last Admin: 09/20/19 09:34 Dose: 1 drop Documented by: Enoxaparin Sodium (Lovenox -) 40 mg SQ DAILY [facility] Last Admin: 09/20/19 09:32 Dose: 40 mg Documented by: Fenofibric Acid (Trilipix -) 135 mg PO DAILY [facility] Last Admin: 09/20/19 09:32 Dose: 135 mg Documented by: Levothyroxine Sodium (Synthroid -) 100 mcg PO ACBK [facility] Last Admin: 09/20/19 06:11 Dose: 100 mcg Documented by: Lorazepam (Ativan -) 1 mg PO DAILY PRN PRN Reason: ANXIETY Last Admin: 09/17/19 18:28 Dose: 1 mg Documented by: Losartan Potassium (Cozaar -) 50 mg PO DAILY [facility] Last Admin: 09/20/19 09:32 Dose: 50 mg Documented by: Nystatin (Nystop Powder -) 1 applic TP DAILY [facility] Last Admin: 09/20/19 09:33 Dose: 1 applic Documented by: Oxycodone HCl (Roxicodone -) 5 mg PO Q4H PRN PRN Reason: PAIN LEVEL 6-10 Last Admin: 09/19/19 21:16 Dose: 5 mg Documented by: Potassium Chloride (K-Dur -) 20 meq PO DAILY [facility] Last Admin: 09/20/19 09:32 Dose: 20 meq Documented by: Senna (Senna -) 2 tab PO HS [facility] Last Admin: 09/19/19 21:16 Dose: 2 tab Documented by: - Objective Vital Signs: Vital Signs Temperature 98.8 F 09/20/19 10:00 Pulse Rate 80 09/20/19 10:00 Respiratory Rate 18 09/20/19 10:00 Blood Pressure 108/56 L 09/20/19 10:00 O2 Sat by Pulse Oximetry (%) 94 L 09/20/19 10:00 Constitutional: Yes: Well Nourished, No Distress Eyes: Yes: Conjunctiva Clear, EOM Intact HENT: Yes: Atraumatic, Normocephalic Neck: Yes: Supple, Trachea Midline Cardiovascular: Yes: Regular Rate and Rhythm, S1, S2 Respiratory: Yes: Regular, CTA Bilaterally Extremities: Yes: WNL Edema: Yes Labs: CBC, BMP 09/19/19 05:56 09/19/19 05:56 INR, PTT INR 1.01 (0.83-1.09) 09/14/19 20:20 Problem List - Problems (1) CHF exacerbation Code(s): I50.9 - HEART FAILURE, UNSPECIFIED Qualifiers: Heart failure type: unspecified Qualified Code(s): I50.9 - Heart failure, unspecified Assessment/Plan 1. Pt recieved IVF for management of elevated CPK. CT chest showing small effusions, no PE and echocardiogram with preserved LV function and diastolic dysfunction. Her hypoxia is likely due to a component of HfPEF. Agree with low dose diuretic therapy. Incentive spirometry and BiPAP if needed. Monitor O2 sat and keep >90% Repeat CXR if hypoxia does not improve in 24-48 Hrs. 2. Mildly prolonged QT interval. No arrhythmias. Continue to monitor Electrolytes and keep Mg>2 K>4
[2019-09-20] MEDS: oxyCODONE HCL 5 MG TABLET PO PRN ×2 (12:50→21:37)
[2019-09-20 13:16] LABS: BASO % 0.7 % (0-2.0); EOS % 6.5 % (0-4.5); HEMATOCRIT 33.9 % (32.4-45.2); MCH 29.7 pg (25.7-33.7); MCHC 32.6 g/dl (32.0-36.0); MEAN CELL VOLUME 91.2 fl (80-96); MEAN PLT VOLUME 7.9 fl (7.5-11.1); MONO % 10.2 % (3.8-10.2); NEUT % 73.6 % (42.8-82.8); PLATELET COUNT 359 K/MM3 (134-434); RBC 3.72 M/mm3 (3.60-5.2); RDW 15.6 % (11.6-15.6); WHITE BLOOD COUNT 7.9 K/mm3 (4.0-10.0)
[2019-09-20 13:38] LABS: BLOOD UREA NITROGEN 51.6 mg/dL (7-18); CALCIUM 8.4 mg/dL (8.5-10.1); CREATININE 1.2 mg/dL (0.55-1.3); PHOSPHOROUS 4.1 mg/dL (2.5-4.9)
--- NOTE | 2019-09-20 14:37 | PN ---
Progress Note (short form) - Note Progress Note: SUBJECTIVE: Feeling well. Denies shoulder or back pain currently. No further SOB. OBJECTIVE: Afebrile, Hemodynamically Stable. AAO x 3. SpO2 94% on 2L. Cooperative and following commands. Last Vital Signs Temp Pulse Resp BP Pulse Ox 98.8 F 80 18 108/56 L 94 L 09/20/19 10:00 09/20/19 10:00 09/20/19 10:00 09/20/19 10:00 09/20/19 10:00 Heart - S1, S2, RRR Lungs - air entry reduced at bases Abdomen - High BMI. Soft, non-tender. Bowel Sounds normal. Extremities - Edema +. Varicose Veins. Neuro - AAO x 3. Decreased Power LEs. No focal deficits. Laboratory Results - last 24 hr 09/20/19 09/20/19 12:57 12:57 WBC 7.9 RBC 3.72 Hgb 11.0 Hct 33.9 MCV 91.2 MCH 29.7 MCHC 32.6 RDW 15.6 Plt Count 359 D MPV 7.9 Absolute Neuts (auto) 5.8 Neutrophils % 73.6 Lymphocytes % 9.0 Monocytes % 10.2 Eosinophils % 6.5 H D Basophils % 0.7 Nucleated RBC % 0 Sodium 140 Potassium 5.0 Chloride 104 Carbon Dioxide 31 Anion Gap 5 L BUN 51.6 H Creatinine 1.2 Est GFR (CKD-EPI)AfAm 47.39 Est GFR (CKD-EPI)NonAf 40.89 Random Glucose 161 H Calcium 8.4 L Phosphorus 4.1 Magnesium 2.0 Current Medications Generic Name Dose Route Start Last Admin Trade Name Saulq PRN Reason Stop Dose Admin Acetaminophen 650 mg 09/15/19 02:33 09/19/19 14:46 Tylenol - PO 650 mg Q4H PRN Administration PAIN LEVEL 1-3 Atenolol 50 mg 09/15/19 10:00 09/20/19 09:32 Tenormin - PO 50 mg DAILY [facility] Administration Atorvastatin Calcium 10 mg 09/15/19 17:30 09/19/19 21:16 Lipitor - PO 10 mg HS [facility] Administration Brimonidine Tartrate 1 drop 09/16/19 10:00 09/20/19 09:33 Alphagan 0.15% - OD 1 drop BID [facility] Administration Docusate Sodium 100 mg 09/19/19 11:30 09/20/19 09:32 Colace - PO 100 mg BID [facility] Administration Dorzolamide HCl 1 drop 09/16/19 10:00 09/20/19 09:34 Trusopt 2% OU 1 drop BID [facility] Administration Enoxaparin Sodium 40 mg 09/18/19 10:00 09/20/19 09:32 Lovenox - SQ 40 mg DAILY [facility] Administration Fenofibric Acid 135 mg 09/15/19 17:30 09/20/19 09:32 Trilipix - PO 135 mg DAILY [facility] Administration Levothyroxine Sodium 100 mcg 09/15/19 07:00 09/20/19 06:11 Synthroid - PO 100 mcg ACBK [facility] Administration Losartan Potassium 50 mg 09/15/19 10:00 09/20/19 09:32 Cozaar - PO 50 mg DAILY [facility] Administration Nystatin 1 applic 09/18/19 12:15 09/20/19 09:33 Nystop Powder - TP 1 applic DAILY [facility] Administration Oxycodone HCl 5 mg 09/18/19 17:20 09/20/19 12:50 Roxicodone - PO 5 mg Q4H PRN Administration PAIN LEVEL 6-10 Potassium Chloride 20 meq 09/15/19 10:00 09/20/19 09:32 K-Dur - PO 20 meq DAILY [facility] Administration Senna 2 tab 09/19/19 22:00 09/19/19 21:16 Senna - PO 2 tab HS [facility] Administration Home Medications Medication Instructions Recorded Atenolol [Tenormin -] 50 mg PO DAILY #0 tablet 05/10/11 Atorvastatin Ca [Lipitor] 10 mg PO DAILY 06/10/13 Fenofibrate 160 mg PO DAILY 06/10/13 Levothyroxine [Synthroid -] 100 mcg PO DAILY 06/10/13 Losartan Potassium 50 mg PO DAILY 06/10/13 Potassium Chloride 20 meq PO DAILY 06/10/13 Brimonidine Tartrate [Alphagan P] 10 ml OP BID 09/15/19 Brinzolamide [Azopt 10 ml OP BID 09/15/19 (Non-Formulary)] ASSESSMENT AND PLAN: 84 year old female with history of HTN, HLD, Hypothyroidism, presents with LE weakness, R shoulder pain after being carried up stairs in a bed-sheet due to poor mobility. 1. Right Anterior Shoulder Dislocation Ortho consulted and due to time elapsed from injury and concomitant spinal injury, recommendation for no surgical intervention/manipulation currently. Sling. Ortho out-patient follow up. 2. Acute T11 Spinal fracture, unstable with hyperextension/distraction injury Neurosurgery evaluated and recommends TLSO Brace, MRI, and PT/Rehab. Multiple attempts at MRI - unable to tolerate study/fit in scanner. Upright T spine x-rays AP/lat in 2 weeks in brace to assess T10-11 alignment PT for strengthening and mobilization 3. Elevated CPK, possibly secondary to Lipitor IV hydration stopped due to fluid overload. Will monitor CPK. 4. Acute Hypoxic Respiratory Failure secondary to fluid overload/diastolic CHF, on 2L O2 via NC. Echo - impaired LV relaxation. CXR - atelectasis, bibasal fluid. Small bibasal effusions with compressive atelectasis on CT Chest. Will give another dose IV Lasix 20mg and attempt to wean off O2. Cardiology following - recommend repeat CXR in 24-48 hours if still O2 dependent. 5. LE Edema, likely venous stasis LE Duplex negative for DVT. Cardiomegaly and possible congestion on CXR. BNP 634 Echo - impaired LV relaxation. Receiving Lasix IV 6. MARIA ISABEL - elevation in BUN/Creat likely sec to IV Lasix - improving, will monitor. 7. 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 8. Hypothyroidism - Mild elevation in TSH 4.42 Further up-titration of Synthroid as out-patient by PCP 9. HTN - continue Losartan, Atenolol. 10. HLD - Statin held due to elevated CPK. 11. Hypomagnesemia - repleted. 12. Elevated QTc at 521. Cardiology consulted for elevated QTc - recommend no further work-up/intervention. RV Strain on Echo - CTA negative for PE. 13. Likely underlying Dementia with waxing/waning mental status. Sundowns apparently - Now AAO x 3, Cooperative and following commands. DVT Px - Lovenox SQ Visit type - Emergency Visit Emergency Visit: Yes ED Registration Date: 09/14/19 Care time: The patient presented to the Emergency Department on the above date and was hospitalized for further evaluation of their emergent condition. - New Patient This patient is new to me today: No - Critical Care Critical Care patient: No - Discharge Referral Referred to [facility] Med P.C.: No
[2019-09-20] MEDS: FUROSEMIDE 20 MG TABLET (FP) PO SCH (16:09)
[2019-09-20] MEDS: ATORVASTATIN CA 10 MG TABLET (FP) PO SCH (21:05)
[2019-09-20] MEDS: SENNOSIDES 8.6MG TABLET (FP) PO SCH (21:06)
[2019-09-21] MEDS: LEVOTHYROXINE NA 100 MCG TABLET (FP) PO SCH (05:59)
--- NOTE | 2019-09-21 08:21 | PN ---
Progress Note (short form) - Note Progress Note: Pt seen and examined. She is doing well, no complaints of pain in the right shoulder. She is using the shoulder sling. Apparently in the ER they were able to reduce it but it was highly unstable and kept dislocating easily, c/w a large full thickness RTC tear. Denies any neurologic symptoms/parasthesias or weakness of the right UE. RUE has good ROM at the elbow, forearm, wrist, fingers, thumb. No significant deformity (partially masked by soft tissue) Imp Overall she is doing very well with an unstable, dislocated right shoulder. Rec Sling for comfort. No surgery planned. She can be discharged from an orthopedic pov She will f/u as an out patient over the next 2-3 weeks. Activities as tolerated.
[2019-09-21] MEDS: ENOXAPARIN NA (PORCINE) 40 MG/0.4 ML DISP.SYRIN SQ SCH (09:34)
[2019-09-21] MEDS: FUROSEMIDE 20 MG TABLET (FP) PO SCH (09:34)
[2019-09-21] MEDS: ATENOLOL 50 MG TABLET (FP) PO SCH (09:35)
[2019-09-21] MEDS: POTASSIUM CHLORIDE TABS 20 MEQ TABLET.ER (FP) PO SCH (09:35)
[2019-09-21] MEDS: FENOFIBRIC ACID 135 MG CAP PO SCH (09:35)
[2019-09-21] MEDS: LOSARTAN POTASSIUM 50 MG TABLET (FP) PO SCH (09:36)
[2019-09-21] MEDS: BRIMONIDINE TARTRATE 0.15% OPHTHALMIC 5 ML BOTTLE OD SCH (09:36)
[2019-09-21] MEDS: NYSTATIN POWDER 100,000 UNITS/GM - 15 GM TOPICAL POWDER TP SCH (09:36)
[2019-09-21] MEDS: DORZOLAMIDE 2% HCL OPHTHALMIC SOLUTION 10 ML BOTTLE OU SCH (09:37)
[2019-09-21 10:47] VITALS: PULSE 79
--- NOTE | 2019-09-21 12:42 | PN ---
Progress Note, Physician History of Present Illness: seen and examined today in nad. states she is feeling better. denies any sob currently. denies any new complaints. - Current Medication List Current Medications: Active Medications Acetaminophen (Tylenol -) 650 mg PO Q4H PRN PRN Reason: PAIN LEVEL 1-3 Last Admin: 09/19/19 14:46 Dose: 650 mg Documented by: Atenolol (Tenormin -) 50 mg PO DAILY [facility] Last Admin: 09/21/19 09:35 Dose: Not Given Documented by: Atorvastatin Calcium (Lipitor -) 10 mg PO HS [facility] Last Admin: 09/20/19 21:05 Dose: 10 mg Documented by: Brimonidine Tartrate (Alphagan 0.15% -) 1 drop OD BID [facility] Last Admin: 09/21/19 09:36 Dose: 1 drop Documented by: Docusate Sodium (Colace -) 100 mg PO BID [facility] Last Admin: 09/20/19 21:05 Dose: 100 mg Documented by: Dorzolamide HCl (Trusopt 2%) 1 drop OU BID [facility] Last Admin: 09/21/19 09:37 Dose: 1 drop Documented by: Enoxaparin Sodium (Lovenox -) 40 mg SQ DAILY [facility] Last Admin: 09/21/19 09:34 Dose: 40 mg Documented by: Fenofibric Acid (Trilipix -) 135 mg PO DAILY [facility] Last Admin: 09/21/19 09:35 Dose: 135 mg Documented by: Furosemide (Lasix -) 20 mg PO DAILY [facility] Last Admin: 09/21/19 09:34 Dose: 20 mg Documented by: Levothyroxine Sodium (Synthroid -) 100 mcg PO ACBK [facility] Last Admin: 09/21/19 05:59 Dose: 100 mcg Documented by: Losartan Potassium (Cozaar -) 50 mg PO DAILY [facility] Last Admin: 09/21/19 09:36 Dose: Not Given Documented by: Nystatin (Nystop Powder -) 1 applic TP DAILY [facility] Last Admin: 09/21/19 09:36 Dose: 1 applic Documented by: Oxycodone HCl (Roxicodone -) 5 mg PO Q4H PRN PRN Reason: PAIN LEVEL 6-10 Last Admin: 09/20/19 21:37 Dose: 5 mg Documented by: Potassium Chloride (K-Dur -) 20 meq PO DAILY [facility] Last Admin: 09/21/19 09:35 Dose: 20 meq Documented by: Carlos (Senna -) 2 tab PO HS [facility] Last Admin: 09/20/19 21:06 Dose: 2 tab Documented by: - Objective Vital Signs: Vital Signs Temperature 99 F 09/21/19 09:00 Pulse Rate 79 09/21/19 09:00 Respiratory Rate 18 09/21/19 09:00 Blood Pressure 96/42 L 09/21/19 09:00 O2 Sat by Pulse Oximetry (%) 93 L 09/21/19 10:50 Constitutional: Yes: No Distress, Calm, Obese Eyes: Yes: Conjunctiva Clear, EOM Intact HENT: Yes: Atraumatic, Normocephalic Neck: Yes: Supple, Trachea Midline Cardiovascular: Yes: Regular Rate and Rhythm, S1, S2. No: Bradycardia, Tachycardia, Pulse Irregular, Bruit, JVD, Gallop, Murmur, Rub, S3, S4, Varicosities Respiratory: Yes: Regular, Diminished. No: Rales, Rhonchi, SOB, Wheezes Gastrointestinal: Yes: Normal Bowel Sounds, Soft. No: Distention, Tenderness Musculoskeletal: Yes: Muscle Weakness Edema: Yes Edema: LLE: Trace, RLE: Trace Peripheral Pulses WNL: Yes Psychiatric: Yes: Alert, Oriented Labs: CBC, BMP 09/20/19 12:57 INR, PTT INR 1.01 (0.83-1.09) 09/14/19 20:20 - ....Imaging Chest X-ray: Report Reviewed, Image Reviewed EKG: Report Reviewed, Image Reviewed Other: Report Reviewed, Image Reviewed (tele-no sig arrhythmias) Assessment/Plan Pt recieved IVF for management of elevated CPK. -CT chest showing small effusions, no PE and echocardiogram with preserved LV function and diastolic dysfunction. -Her hypoxia is likely due to a component of HfPEF. - Incentive spirometry and BiPAP if needed. -Monitor O2 sat and keep >90% -Repeat CXR if hypoxia does not improve in 24-48 Hrs. -cont low dose Lasix po Mildly prolonged QT interval. -No arrhythmias on tele. -maintain Electrolytes, keep Mg>2 K>4
[2019-09-21 12:52] LABS: ALBUMIN 2.4 g/dl (3.4-5.0); BILIRUBIN,TOTAL 1.3 mg/dL (0.2-1); BLOOD UREA NITROGEN 51.4 mg/dL (7-18); CALCIUM 8.6 mg/dL (8.5-10.1); MAGNESIUM 2.4 mg/dL (1.8-2.4); PHOSPHOROUS 3.9 mg/dL (2.5-4.9); POTASSIUM 5.4 mmol/L (3.5-5.1); TOT PROT 5.7 g/dl (6.4-8.2)
[2019-09-21 14:05] VITALS: BP 115/58; TEMP 98.4
[2019-09-21] MEDS ORDERED: SODIUM ZIRCONIUM CYCLOSILICATE (LOKELMA) 5 GM PACKET PO SCH (14:15)
[2019-09-21] MEDS ORDERED: PT OWN MED DRAWER 7, Y5N ONE (14:21)
--- NOTE | 2019-09-21 14:22 | DS ---
Physical Exam: SUBJECTIVE: Patient seen and examined at bedside. Patient was awake and comfortable on room air. Patient is being weened off of NC. OBJECTIVE: Vital Signs Period Temp Pulse Resp BP Sys/Mazariegos Pulse Ox Last 24 Hr 98.2 F-99.3 F 66-79 18-20 96-140/42-78 85-97 PHYSICAL EXAM GENERAL: The patient is awake, alert, and fully oriented, in no acute distress. HEAD: Normal with no signs of trauma. EYES: PERRL, extraocular movements intact, sclera anicteric, conjunctiva clear. ENT: Ears normal, nares patent, oropharynx clear without exudates, moist mucous membranes. NECK: Trachea midline, full range of motion, supple. LUNGS: Breath sounds equal, clear to auscultation bilaterally, no wheezes, no crackles, no accessory muscle use. HEART: Regular rate and rhythm, S1, S2 without murmur, rub or gallop. ABDOMEN: Soft, nontender, nondistended, normoactive bowel sounds, no guarding, no rebound, no hepatosplenomegaly, no masses. EXTREMITIES: 2+ pulses, warm, well-perfused, no edema. NEUROLOGICAL: Cranial nerves II through XII grossly intact. Normal speech, gait not observed. PSYCH: Normal mood, normal affect. SKIN: Warm, dry, normal turgor, no rashes or lesions noted. LABS Laboratory Results - last 24 hr 09/21/19 12:08 Sodium 140 Potassium 5.4 H Chloride 106 Carbon Dioxide 27 Anion Gap 7 L BUN 51.4 H Creatinine 1.0 Est GFR (CKD-EPI)AfAm 59.08 Est GFR (CKD-EPI)NonAf 50.97 Random Glucose 101 Calcium 8.6 Phosphorus 3.9 Magnesium 2.4 Total Bilirubin 1.3 H AST 16 ALT 20 Alkaline Phosphatase 58 Total Protein 5.7 L Albumin 2.4 L HOSPITAL COURSE: Date of Admission:09/14/19 Date of Discharge: 09/21/19 Minutes to complete discharge: 40 Discharge Summary Problems reviewed: Yes Reason For Visit: ACUTE ON CHRONIC CONGESTIVE HEART FAILURE, WEAKNES Condition: Good - Instructions Diet, Activity, Other Instructions: YOUR VISIT: You were admitted to the hospital for a shoulder dislocation. While you were in the hospital, we evaluated you with lab work, blood work, imaging including x-rays of your shoulder, CAT scan of your spine which showed a fracture of one of your vertebral bones. You were evaluated by neurosurgery and you were found not to have any spinal cord involvement. You were placed in a back brace for whenever you are out of bed and should use this for the next three months. In the next 2 weeks you should follow up with an xray by your primary care physician to assess your vertebral bone healing progress. You were also found to have heart failure for which we treated you with heart medication and oxygen. We tried to assess you with an MRI machine but your injury made it d ifficult to proceed and will be followed up at a later date. Please follow up with your primary care physician on SATURDAY to repeat your lab work including potassium and imaging including an MRI. Please follow up with your primary care physician to also evaluate your dosage of levothyroxine because of mildly abnormal labwork. Please follow up with Dr. 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 Please return to the emergency department if you begin to experience worsening shortness of breath, increased chest pain/pressure, nausea, vomiting, fever, or worsening or concerning symptoms. Referrals: Nikhil Collins MD [Staff Physician] - 3 Weeks Mainor Null MD [Staff Physician] - 1 Month Kalyan Mustafa DO [Staff Physician] - 1 Month Clark Cheema MD [Primary Care Provider] - 1 Week Disposition: LONG TERM FACILITY - Home Medications Comprehensive Discharge Medication List: Ambulatory Orders Atenolol [Tenormin -] 50 mg PO DAILY #0 tablet 05/10/11 Atorvastatin Ca [Lipitor] 10 mg PO DAILY 06/10/13 Fenofibrate 160 mg PO DAILY 06/10/13 Levothyroxine [Synthroid -] 100 mcg PO DAILY 06/10/13 Losartan Potassium 50 mg PO DAILY 06/10/13 Potassium Chloride 20 meq PO DAILY 06/10/13 Brimonidine Tartrate [Alphagan P] 10 ml OP BID 09/15/19 Brinzolamide [Azopt (Non-Formulary)] 10 ml OP BID 09/15/19 Furosemide [Lasix] 20 mg PO DAILY #30 tablet 09/21/19 Sodium Zirconium Cyclosilicate [Lokelma] 5 gm PO DAILY 3 Days #3 packet 09/21/19 - Discharge Referral Referred to [facility] Med [facility]C.: No ATTENDING PHYSICIAN STATEMENT I saw and evaluated the patient. I reviewed the resident's note and discussed the case with the resident. I agree with the resident's findings and plan as documented. SUBJECTIVE: OBJECTIVE: ASSESSMENT AND PLAN:
[2019-09-21] MEDS: DOCUSATE SODIUM 100 MG CAPSULE (FP) PO SCH (14:23)
--- NOTE | 2019-09-21 14:31 | PN ---
Teaching Attending Note Name of Resident: Александр Johnson ATTENDING PHYSICIAN STATEMENT I saw and evaluated the patient. I reviewed the resident's note and discussed the case with the resident. I agree with the resident's findings and plan as documented. SUBJECTIVE: Feeling well. Denies shoulder or back pain currently. No further SOB. OBJECTIVE: Afebrile, Hemodynamically Stable. AAO x 3. SpO2 93% on 1L. Cooperative and following commands. Last Vital Signs Temp Pulse Resp BP Pulse Ox 98.4 F 79 18 115/58 L 94 L 09/21/19 13:00 09/21/19 13:00 09/21/19 13:00 09/21/19 13:00 09/21/19 14:05 Heart - S1, S2, RRR Lungs - air entry reduced at bases Abdomen - High BMI. Soft, non-tender. Bowel Sounds normal. Extremities - Edema +. Varicose Veins. Neuro - AAO x 3. Decreased Power LEs. No focal deficits. Laboratory Results - last 24 hr 09/21/19 12:08 Sodium 140 Potassium 5.4 H Chloride 106 Carbon Dioxide 27 Anion Gap 7 L BUN 51.4 H Creatinine 1.0 Est GFR (CKD-EPI)AfAm 59.08 Est GFR (CKD-EPI)NonAf 50.97 Random Glucose 101 Calcium 8.6 Phosphorus 3.9 Magnesium 2.4 Total Bilirubin 1.3 H AST 16 ALT 20 Alkaline Phosphatase 58 Total Protein 5.7 L Albumin 2.4 L Current Medications Generic Name Dose Route Start Last Admin Trade Name Freq PRN Reason Stop Dose Admin Acetaminophen 650 mg 09/15/19 02:33 09/19/19 14:46 Tylenol - PO 650 mg Q4H PRN Administration PAIN LEVEL 1-3 Atenolol 50 mg 09/15/19 10:00 09/21/19 09:35 Tenormin - PO Not Given DAILY SAAD Atorvastatin Calcium 10 mg 09/15/19 17:30 09/20/19 21:05 Lipitor - PO 10 mg HS SAAD Administration Brimonidine Tartrate 1 drop 09/16/19 10:00 09/21/19 09:36 Alphagan 0.15% - OD 1 drop BID SAAD Administration Docusate Sodium 100 mg 09/19/19 11:30 09/20/19 21:05 Colace - PO 100 mg BID SAAD Administration Dorzolamide HCl 1 drop 09/16/19 10:00 09/21/19 09:37 Trusopt 2% OU 1 drop BID SAAD Administration Enoxaparin Sodium 40 mg 09/18/19 10:00 09/21/19 09:34 Lovenox - SQ 40 mg DAILY SAAD Administration Fenofibric Acid 135 mg 09/15/19 17:30 09/21/19 09:35 Trilipix - PO 135 mg DAILY SAAD Administration Furosemide 20 mg 09/20/19 14:45 09/21/19 09:34 Lasix - PO 20 mg DAILY SAAD Administration Levothyroxine Sodium 100 mcg 09/15/19 07:00 09/21/19 05:59 Synthroid - PO 100 mcg ACBK SAAD Administration Losartan Potassium 50 mg 09/15/19 10:00 09/21/19 09:36 Cozaar - PO Not Given DAILY [facility] Nystatin 1 applic 09/18/19 12:15 09/21/19 09:36 Nystop Powder - TP 1 applic DAILY SAAD Administration Oxycodone HCl 5 mg 09/18/19 17:20 09/20/19 21:37 Roxicodone - PO 5 mg Q4H PRN Administration PAIN LEVEL 6-10 Potassium Chloride 20 meq 09/15/19 10:00 09/21/19 09:35 K-Dur - PO 20 meq DAILY SAAD Administration Senna 2 tab 09/19/19 22:00 09/20/19 21:06 Senna - PO 2 tab HS SAAD Administration Sodium Zirconium Cyclosilicate 5 gm 09/21/19 14:15 Lokelma PO DAILY [facility] Home Medications Medication Instructions Recorded Atenolol [Tenormin -] 50 mg PO DAILY #0 tablet 05/10/11 Atorvastatin Ca [Lipitor] 10 mg PO DAILY 06/10/13 Fenofibrate 160 mg PO DAILY 06/10/13 Levothyroxine [Synthroid -] 100 mcg PO DAILY 06/10/13 Losartan Potassium 50 mg PO DAILY 06/10/13 Potassium Chloride 20 meq PO DAILY 06/10/13 Brimonidine Tartrate [Alphagan P] 10 ml OP BID 09/15/19 Brinzolamide [Azopt 10 ml OP BID 09/15/19 (Non-Formulary)] Furosemide [Lasix] 20 mg PO DAILY #30 tablet 09/21/19 Sodium Zirconium Cyclosilicate 5 gm PO DAILY 3 Days #3 packet 09/21/19 [Lokelma] ASSESSMENT AND PLAN: 84 year old female with history of HTN, HLD, Hypothyroidism, presents with LE weakness, R shoulder pain after being carried up stairs in a bed-sheet due to poor mobility. 1. Right Anterior Shoulder Dislocation Ortho consulted and due to time elapsed from injury and concomitant spinal injury, recommendation for no surgical intervention/manipulation currently. Sling. Ortho out-patient follow up. 2. Acute T11 Spinal fracture, unstable with hyperextension/distraction injury Neurosurgery evaluated and recommends TLSO Brace, MRI, and PT/Rehab. Multiple attempts at MRI - unable to tolerate study/fit in scanner. Upright T spine x-rays AP/lat in 2 weeks in brace to assess T10-11 alignment PT for strengthening and mobilization 3. Acute Hypoxic Respiratory Failure secondary to fluid overload/diastolic CHF, on 1-2L O2 via NC. Echo - impaired LV relaxation. CXR - atelectasis, bibasal fluid. Small bibasal effusions with compressive atelectasis on CT Chest. Diuresed with IV Lasix and cleared for discharge by Cardiology on low dose Lasix 20mg. 4. LE Edema, likely venous stasis LE Duplex negative for DVT. Cardiomegaly and possible congestion on CXR. BNP 634 Echo - impaired LV relaxation. Diuresed with IV Lasix - for DC on oral Lasix 20mg. 5. MARIA ISABEL - elevation in BUN/Creat likely sec to IV Lasix - resolved. repeat labs on oral Lasix. 6. 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 7. Hypothyroidism - Mild elevation in TSH 4.42 Further up-titration of Synthroid as out-patient by PCP 8. HTN - continue Losartan, Atenolol. 9. HLD - Statin held due to elevated CPK. 10. Hyperkalemia - Will start Lokelma for 3 days with repeat labs scheduled for 09/25/19. 11. Elevated QTc at 521. Cardiology consulted for elevated QTc - recommend no further work-up/intervention. RV Strain on Echo - CTA negative for PE. 12. Likely underlying Dementia with waxing/waning mental status. Sundowns apparently - Now AAO x 3, Cooperative and following commands. medically stable for discharge with Ortho, Neurosurgery, Cardiology, PCP follow up.
== END 2019-09-21 14:40 | DRG 291 ==
LOC: JER 19:25 → JERBED 21:18 → J4W 09-15 16:51
PROVIDERS: ADMIT Internal Medicine
PROC: 0RSJXZZ Reposition Right Shoulder Joint, External Approach (ICD-10-PCS; principal; 2019-09-14)
DX: I11.0 Hypertensive heart disease with heart failure (principal); J96.01 Acute respiratory failure with hypoxia; S22.088A Other fracture of T11-T12 vertebra, initial encounter for closed fracture; M62.82 Rhabdomyolysis; S85.30 Unspecified injury of greater saphenous vein at lower leg level; J98.11 Atelectasis; N17.9 Acute kidney failure, unspecified; I50.33 Acute on chronic diastolic (congestive) heart failure; S43.084A Other dislocation of right shoulder joint, initial encounter; S46.011A Strain of muscle(s) and tendon(s) of the rotator cuff of right shoulder, initial encounter; S42.142A Displaced fracture of glenoid cavity of scapula, left shoulder, initial encounter for closed fracture; I10 Essential (primary) hypertension; E78.5 Hyperlipidemia, unspecified; E66.9 Obesity, unspecified; Z68.31 Body mass index [BMI] 31.0-31.9, adult; E03.9 Hypothyroidism, unspecified; R00.0 Tachycardia, unspecified; I44.0 Atrioventricular block, first degree; E83.42 Hypomagnesemia; F03.90 Unspecified dementia, unspecified severity, without behavioral disturbance, psychotic disturbance, mood disturbance, and anxiety; E87.70 Fluid overload, unspecified; E87.5 Hyperkalemia; X58.XXXA Exposure to other specified factors, initial encounter; Y93.89 Activity, other specified; Y92.89 Other specified places as the place of occurrence of the external cause; Y99.9 Unspecified external cause status
CPT/HCPCS: 36415; 70450-TC; 71045-TC-FY; 71250-TC; 71275-TC; 72128-TC; 72131-TC; 73030-TC-RT-FY; 73060-TC-RT-FY; 80048; 80053; 81003; 82550; 82553; 83735; 83880; 84100; 84439; 84443; 84481; 84484; 85025; 85027; 85379; 85610; 85651; 86140; 87086; 93005; 93010; 93306-TC; 93970-TC; 94010; 94640; 97116-GP; 97162-GP; 99285-25; Q9967; U0003